=== PATIENT | male | born 1950 | race Caucasian/White ===

== ENCOUNTER 2016-11-10 17:13 | Inpatient (IN) | payer OTHER, MEDICARE ==
[~2016-11-10] VITALS: Ht 167.6 cm; Wt 67.0 kg
[~2016-11-10 17:13] MED LIST: AZAT50 PO; FEXO180 PO; FLUT1SPR9; INFL100P IV; MIRT30 PO; NORC10TA2 PO; OMEP20TA39 PO
[2016-11-10 17:14] VITALS: BP 142/80; PULSE 82; RESP 16; TEMP 98.4; O2SAT 98
[2016-11-10] MEDS ORDERED: FLUT1SPR5 EACH NARE (17:26)
[2016-11-10] MEDS ORDERED: INFL100P (17:26)
[2016-11-10] MEDS ORDERED: AZAT50 PO (17:26)
[2016-11-10] MEDS ORDERED: HYDR-3366 PO (17:26)
[2016-11-10] MEDS ORDERED: FEXO15TA PO (17:26)
[2016-11-10] MEDS ORDERED: LISI-519 PO (17:27)
[2016-11-10] MEDS ORDERED: OMEP10CA PO (17:27)
[2016-11-10] MEDS ORDERED: MIRT30TA PO (17:28)
[2016-11-10] MEDS ORDERED: SODIUM CHLOR 0.9% 1000 ML INJ 1,000 ML IV ONE (17:30)
--- NOTE | 2016-11-10 17:34 | PD ---
HPI Chief Complaint: Abdominal Pain Time Seen by Provider: 17:24 Travel History International Travel<30 days: No Contact w/Intl Traveler<30days: No Traveled to known affect area: No History of Present Illness HPI This is a 66-year-old male who has a history of Crohn's disease status post total colectomy and ileostomy placement with several known strictures who presents to the emergency Department with onset of abdominal discomfort that started 4 days ago, severe at that time associated with absence of ileostomy output. He tried to treat it at home conservatively and put himself on bowel rest. He did vomit that day. The following day he started to have production from his ostomy again however since then he still been unable to eat or drink and he feels weak and has been getting increasingly dehydrated. Right now he has minimal pain on the right side, intermittent, nonradiating. He denies any blood in his output and denies any fevers or chills. PFSH Past Medical History Narrative Medical Crohn's Disease Hx of SBO that resolves spontaneously HTN Hx of hepatic cysts/renal cyst Allergies Anxiety/Depression GERD Hiatal hernia Arthritis: No Asthma: No Autoimmune Disease: No Blood Disorders: No Heart Rhythm Problems: No Cancer: No Cardiovascular Problems: No High Cholesterol: No Chemotherapy: No Chest Pain: No Congestive Heart Failure: No COPD: No Cerebrovascular Accident: No Diabetes: No Diminished Hearing: No Endocrine: No Gastrointestinal Disorders: Yes (HX CROHNS) GERD: Yes Genitourinary: No Headaches: No Hepatitis: No Hiatal Hernia: No Hypertension: No Immune Disorder: No Implanted Vascular Access Dvce: No Kidney Stones: Yes Medical other: No Musculoskeletal: No Neurologic: No Psychiatric: No Reproductive: No Respiratory: No Immunizations Current: Yes Migraines: No Renal Failure: No Seizures: No Sickle Cell Disease: No Sleep Apnea: No Thyroid Disease: No Ulcer: No PNEUMOCCOCAL Vaccine (Year): 2 Past Surgical History Abdominal Surgery: Yes (ILEIOSTOMY, ENTIRE LARGE INTESTINE REMOVED, GALLBLADDER REMOVED) AICD: No Appendectomy: Yes Cardiac Surgery: No Cholecystectomy: Yes Ear Surgery: No Endocrine Surgery: No Eye Surgery: No Genitourinary Surgery: No Gynecologic Surgery: No Joint Replacement: No Neurologic Surgery: No Oral Surgery: No Pacemaker: No Thoracic Surgery: No Other Surgery: Yes (ILEOSTOMY, COLON, APPENDECTOMY, ANAL, GALLBLADDER) Social History Alcohol Use: Yes (OCC) Tobacco Use: No Substance Use: No Allergies-Medications (Allergen,Severity, Reaction): Coded Allergies: No Known Allergies (Verified , 11/10/16) Reported Meds & Prescriptions Reported Meds & Active Scripts Active Reported Mirtazapine 30 Mg Tab 30 Mg PO HS Lisinopril 5 Mg Tab 5 Mg PO DAILY Omeprazole 10 Mg Cap 10 Mg PO DAILY Remicade Inj (Infliximab) 100 Mg Inj [place] (Hydrocodone-Acetaminophen) 10-325 Mg Tab 1 Tab PO Q4H PRN Flonase Nasal [place] (Fluticasone Nasal [place]) 50 Mcg/Act [place] 50 Mcg EACH NARE BID Lucina Allergy (Fexofenadine HCl) 180 Mg Tab 180 Mg PO DAILY Azathioprine 50 Mg Tab 50 Mg PO DAILY Hazardous agent use appropriate precautions for handling and disposal. Review of Systems Except as stated in HPI: all other systems reviewed are Neg Physical Exam Narrative GENERAL:Well appearing, no acute distress SKIN: Dry with skin tenting. HEAD: Atraumatic. Normocephalic. EYES: Pupils equal and round. No injection or drainage. ENT: Dry mucous membranes. NECK: Trachea midline. CARDIOVASCULAR: Regular rate and rhythm. No murmur appreciated. RESPIRATORY: Clear to auscultation. Breath sounds equal bilaterally. GASTROINTESTINAL: Multiple abdominal scars, normal bowel sounds in the upper abdomen. Mildly tender to palpation in the right upper and right lower quadrants with no rebound or guarding. MUSCULOSKELETAL: No obvious deformities. NEUROLOGICAL: Awake and alert. No obvious cranial nerve deficits. Moving all extremities. PSYCHIATRIC: Appropriate mood and affect; insight and judgment normal. Data Data Last Documented VS Vital Signs Date Time Temp Pulse Resp B/P Pulse Ox O2 Delivery O2 Flow Rate FiO2 11/10/16 20:00 90 16 133/65 99 Room Air 11/10/16 17:14 98.4 Orders Complete Blood Count With Diff (11/10/16 17:30) Comprehensive Metabolic Panel (11/10/16 17:30) ^ Insert Iv (11/10/16 17:30) Sodium Chlor 0.9% 1000 Ml Inj (Ns 1000 M (11/10/16 17:30) Ct Abd/Pel W Iv Contrast(Rout) (11/10/16 ) Morphine Inj (Morphine Inj) (11/10/16 17:45) Iohexol 350 Inj (Omnipaque 350 Inj) (11/10/16 19:20) Sodium Chlor 0.9% 1000 Ml Inj (Ns 1000 M (11/10/16 19:30) Admit To Inpatient (11/10/16 ) Code Status (11/10/16 19:56) Vital Signs (Adult) Q4H (11/10/16 19:56) Activity Oob With Assistance (11/10/16 19:56) Sodium Chloride 0.9% Flush (Ns Flush) (11/10/16 20:00) Sodium Chloride 0.9% Flush (Ns Flush) (11/10/16 21:00) Acetaminophen (Tylenol) (11/10/16 20:00) Ondansetron Inj (Zofran Inj) (11/10/16 20:00) Temazepam (Restoril) (11/10/16 20:00) Basic Metabolic Panel (Bmp) (11/11/16 06:00) Complete Blood Count With Diff (11/11/16 06:00) Chest, Single Ap (11/10/16 19:56) Electrocardiogram (11/10/16 19:56) Pt Request For Service (11/10/16 19:56) Scd Bilateral/Knee High ARCHANA.BID (11/10/16 19:56) Naloxone Inj (Narcan Inj) (11/10/16 20:00) Magnesium Hydroxide Liq (Milk Of Magnesi (11/10/16 20:00) Inpatient Certification (11/10/16 ) Ns + Kcl 20 Meq Inj (Ns + Kcl 20 Meq Inj (11/10/16 20:00) Abdomen, Kub Only (11/11/16 08:00) Clonidine (Catapres) (11/10/16 20:15) Enalaprilat Inj (Vasotec Inj) (11/10/16 20:15) Azathioprine (Imuran) (11/11/16 09:00) Lisinopril (Prinivil) (11/11/16 09:00) Mirtazapine (Remeron) (11/10/16 21:00) Acetamin-Hydrocod 325-5 Mg ([place] 5-325 (11/10/16 20:15) Hydromorphone Pf Inj (Dilaudid Pf Inj) (11/10/16 20:15) Admit Order (Ed Use Only) (11/10/16 20:08) Consult Colorectal Surgery (11/10/16 ) Labs Laboratory Tests Test 11/10/16 17:43 White Blood Count 11.9 TH/MM3 Red Blood Count 5.11 MIL/MM3 Hemoglobin 15.9 GM/DL Hematocrit 47.0 % Mean Corpuscular Volume 92.0 FL Mean Corpuscular Hemoglobin 31.1 PG Mean Corpuscular Hemoglobin 33.8 % Concent Red Cell Distribution Width 13.1 % Platelet Count 267 TH/MM3 Mean Platelet Volume 9.1 FL Neutrophils (%) (Auto) 75.0 % Lymphocytes (%) (Auto) 15.5 % Monocytes (%) (Auto) 8.8 % Eosinophils (%) (Auto) 0.3 % Basophils (%) (Auto) 0.4 % Neutrophils # (Auto) 8.9 TH/MM3 Lymphocytes # (Auto) 1.8 TH/MM3 Monocytes # (Auto) 1.0 TH/MM3 Eosinophils # (Auto) 0.0 TH/MM3 Basophils # (Auto) 0.0 TH/MM3 CBC Comment DIFF FINAL Differential Comment Sodium Level 138 MEQ/L Potassium Level 4.1 MEQ/L Chloride Level 105 MEQ/L Carbon Dioxide Level 21.9 MEQ/L Anion Gap 11 MEQ/L Blood Urea Nitrogen 19 MG/DL Creatinine 1.15 MG/DL Estimat Glomerular Filtration 63 ML/MIN Rate Random Glucose 120 MG/DL Calcium Level 9.4 MG/DL Total Bilirubin 0.8 MG/DL Aspartate Amino Transf 44 U/L (AST/SGOT) Alanine Aminotransferase 65 U/L (ALT/SGPT) Alkaline Phosphatase 90 U/L Total Protein 7.5 GM/DL Albumin 3.5 GM/DL MDM Medical Decision Making Medical Screen Exam Complete: Yes Emergency Medical Condition: Yes Interpretation(s) afebrile, no tachycardia, hypertensive mild leukocytosis 75% neutrophils electrolytes within normal limits Last 24 hours Impressions Chest X-Ray 11/10/16 1956 Signed Impressions: Service Date/Time: Thursday, November 10, 2016 20:10 - CONCLUSION: No acute disease. Davian Curtis MD Abdomen/Pelvis CT 11/10/16 0000 Signed Impressions: Service Date/Time: Thursday, November 10, 2016 19:10 - CONCLUSION: 1. Fluid-filled dilated loops of small bowel with particular dilatation of a loop within the left hemipelvis measuring 10 cm in caliber in the region of previous anastomoses indicating recurrent small bowel obstruction. Clinical correlation is recommended. 2. Chronic moderate hydronephrosis on the left. 3. Stable tiny left renal cyst. 4. Enlarged prostate. Davian Curtis MD Differential Diagnosis Bowel obstruction, dehydration, ileus, abscess, stricture Narrative Course This is a 66-year-old male who presents to the emergency department with a history of Crohn's disease, multiple strictures and an ileostomy who reports abdominal discomfort, vomiting and some decreased ostomy output. On exam he appears dehydrated. Labs were obtained which were reassuring. CT abdomen and pelvis demonstrates a bowel obstruction. Given he had some ostomy output on arrival in the emergency department I don't think an NG tube is necessarily warranted. I spoke to Dr. Wilson who was on-call and he agrees that the patient can be closely observed and if he becomes more symptomatic we can place an NG tube at that time. Patient will be admitted for bowel rest, GI and colorectal surgery consultation. Physician Communication Physician Communication Discussed with Dr. Valdez and Dr. Wilson Diagnosis Primary Impression: Small bowel obstruction Admitting Information Admitting Physician Requests: Admit Farida Frye MD Nov 10, 2016 17:34
[2016-11-10 17:35] VITALS: BP 139/64; PULSE 80; RESP 18; O2SAT 100
[2016-11-10] MEDS ORDERED: MORPHINE SULFATE 4 MG/ML INJ IV PUSH ONE (17:45)
[2016-11-10 17:57] LABS: AUTOMATED NEUTROPHIL # 8.9 TH/MM3 (1.8-7.7); BASOPHIL % 0.4 % (0.0-2.0); EOSINOPHIL % 0.3 % (0.0-4.0); HEMO FLAGS DIFF FINAL; LYMPH % 15.5 % (9.0-44.0); LYMPHOCYTE # 1.8 TH/MM3 (1.0-4.8); MEAN CORPUSCULAR HEMOGLOBIN 31.1 PG (27.0-34.0); MEAN CORPUSCULAR HGB CONC 33.8 % (32.0-36.0); MONO % 8.8 % (0.0-8.0); PLATELET COUNT 267 TH/MM3 (150-450); RED BLOOD COUNT 5.11 MIL/MM3 (4.50-5.90); RED CELL DISTRIBUTION WIDTH 13.1 % (11.6-17.2); WHITE BLOOD COUNT 11.9 TH/MM3 (4.0-11.0)
[2016-11-10 18:26] LABS: ALKALINE PHOSPHATASE 90 U/L (45-117); TOTAL BILIRUBIN ADULT 0.8 MG/DL (0.2-1.0)
[2016-11-10 18:44] LABS: ALT (GPT) 65 U/L (12-78); ANION GAP 11 MEQ/L (5-15); AST (GOT) 44 U/L (15-37); BICARBONATE 21.9 MEQ/L (21.0-32.0); BLOOD UREA NITROGEN 19 MG/DL (7-18); CHLORIDE 105 MEQ/L (98-107); GLOMERULAR FILTRATION RATE 63 ML/MIN (>89); SODIUM (NA) 138 MEQ/L (136-145)
[2016-11-10 18:48] LABS: POTASSIUM 4.1 MEQ/L (3.5-5.1)
[2016-11-10] MEDS ORDERED: IOHEXOL 350 MG/ML 10 ML VIAL (for RAD DIAG) IV ONE (19:20)
[2016-11-10] MEDS ORDERED: SODIUM CHLOR 0.9% 1000 ML INJ 1,000 ML IV SCH (19:30)
--- NOTE | 2016-11-10 19:38 | RADRPT ---
EXAM DATE/TIME: 11/10/2016 19:10 [facility] COMPARISON: CT ABDOMEN & PELVIS W CONTRAST, November 03, 2015, 7:12. INDICATIONS : Low medial abdomen pain for 2 days. IV CONTRAST: 90 cc Omnipaque 350 (iohexol) IV ORAL CONTRAST: No oral contrast ingested. RADIATION DOSE: 9.96 CTDIvol (mGy) MEDICAL HISTORY : None SURGICAL HISTORY : Cholecystectomy. Appendectomy. Large intestine removed. ENCOUNTER: Initial ACUITY: 1 day PAIN SCALE: 5/10 LOCATION: Bilateral lower quadrant TECHNIQUE: Volumetric scanning of the abdomen and pelvis was performed. Using automated exposure control and ad justment of the mA and/or kV according to patient size, radiation dose was kept as low as reasonably achievable to obtain optimal diagnostic quality images. DICOM format image data is available electro nically for review and comparison. FINDINGS: Again, there are multiple fluid-filled dilated loops of small bowel. This is worse in appearance com pared to the previous examination in October 2015 and likely represents recurrent small bowel obstructio n. There is a markedly dilated fluid-filled loop of small bowel within the pelvis measuring approxim ately 10 cm in caliber which is in the expected region of previous anastomoses. The patient is statu s post colectomy. The prostate gland is prominent. There is a chronic moderate hydronephrosis on th e left which is stable compared to the previous examination. Small left renal cyst is also stable. The liver, spleen, pancreas, adrenal glands and right kidney are stable. T he abdominal aorta is calc ified but is not aneurysmally dilated. The inferior vena cava is unremarkable. No ascites is noted. The urinary bladder is unremarkable. CONCLUSION: 1. Fluid-filled dilated loops of small bowel with particular dilatation of a loop within the left he mipelvis measuring 10 cm in caliber in the region of previous anastomoses indicating recurrent small bowel obstruction. Clinical correlation is recommended. 2. Chronic moderate hydronephrosis on the left. 3. Stable tiny left renal cyst. 4. Enlarged prostate. Davian Curtis MD on November 10, 2016 at 19:22 Board Certified Radiologist. This report was verified electronically.
[2016-11-10 20:00] VITALS: BP 133/65; PULSE 90; RESP 16; O2SAT 99
[2016-11-10] MEDS ORDERED: ONDANSETRON HCL 4 MG/2 ML VIAL IVP PRN (20:00)
[2016-11-10] MEDS ORDERED: SODIUM CHLORIDE 0.9% FLUSH 10 ML FLUSH IV FLUSH PRN (20:00)
[2016-11-10] MEDS ORDERED: TEMAZEPAM 15 MG CAP PO PRN (20:00)
[2016-11-10] MEDS ORDERED: ACETAMINOPHEN 325 MG TAB PO PRN (20:00)
[2016-11-10] MEDS ORDERED: NALOXONE HCL 0.4 MG/ML AMP IV PRN (20:00)
[2016-11-10] MEDS ORDERED: MAGNESIUM HYDROXIDE SUSP 30 ML CUP PO PRN (20:00)
[2016-11-10] MEDS ORDERED: cloNIDine HCL 0.2 MG TAB PO PRN (20:15)
[2016-11-10] MEDS ORDERED: ACETAMINOPHEN/HYDROcodone 325 MG/5 MG TAB PO PRN (20:15)
[2016-11-10] MEDS ORDERED: ENALAPRILAT 1.25 MG/ML VIAL IV PRN (20:15)
[2016-11-10] MEDS ORDERED: HYDROmorphone HCL PF 1 MG/ML VIAL IV PUSH PRN (20:15)
--- NOTE | 2016-11-10 20:22 | RADRPT ---
EXAM DATE/TIME: 11/10/2016 20:10 [facility] COMPARISON: No previous studies available for comparison. INDICATIONS : Shortness of breath. MEDICAL HISTORY : Crohn's disease. Renal calculi. SURGICAL HISTORY : Cholecystectomy. Ileostomy. ENCOUNTER: Initial ACUITY: 1 day PAIN SCORE: 0/10 LOCATION: Bilateral chest FINDINGS: A single view of the chest demonstrates the lungs to be symmetrically aerated without evidence of mas s, infiltrate or effusion. The cardiomediastinal contours are unremarkable. Osseous structures are intact. CONCLUSION: No acute disease. Davian Curtis MD on November 10, 2016 at 20:19 Board Certified Radiologist. This report was verified electronically.
[2016-11-10] MEDS: MIRTAZAPINE 15 MG TAB PO SCH (21:21)
[2016-11-10] MEDS: SODIUM CHLORIDE 0.9% FLUSH 10 ML FLUSH IV FLUSH SCH (21:21)
[2016-11-10] MEDS: NS + KCL 20 MEQ INJ 1,000 ML IV SCH (21:21)
[2016-11-10 21:32] VITALS: BP 150/69; PULSE 60; RESP 17; TEMP 97.8; O2SAT 98
[2016-11-10 23:58] VITALS: BP 115/57; PULSE 60; RESP 18; TEMP 98.3; O2SAT 95
--- NOTE | 2016-11-11 04:57 | MB ---
cc: JEANA FAIR ANDREW H. M.D. DATE OF CONSULTATION: 11/10/2016 REASON FOR CONSULTATION: History of Crohn disease, possible small bowel obstruction. HISTORY OF PRESENT ILLNESS Mr. Dennis is a 66-year-old male with a long history of Crohn disease dating back to total colectomy, ileostomy, in the . Patient has been treated several times since then for apparent small bowel obstruction which have resolved spontaneously. He has also had some known strictures of the small bowel which have been treated with Remicade and Azathioprine. The patient has been doing fairly well the last couple of days noting increased abdominal discomfort and cramping. He also had decreased ileostomy output. He cut back his diet and despite conservative treatment has not gotten any improvement. He denies fever. He has not had any solid food only minor amounts of liquid for the last several days. He has been feeling a little bit more fatigued and lethargic and presented to the emergency room for additional evaluation. Denies any nausea or vomiting. No other illness at home. No particular food intake. MEDICAL AND SURGICAL HISTORY Well-documented in the admitting history and physical. PERTINENT PHYSICAL A very pleasant well-developed male in no acute distress. HEENT: Remarkable for dry but pink membranes, nonicteric sclera. NECK: Neck was supple without gross adenopathy. CHEST: Relatively clear, symmetrical expanding. HEART: Heart had a regular rhythm. ABDOMEN: Abdomen was full, multiple incisions, all scars appeared to be fairly well-healed. Ileostomy was intact with no stool in the bag, some tympany but no rebound or guarding. Some tenderness in the lower abdomen but no masses. No obvious hernias. EXTREMITIES: No cyanosis or clubbing and no pedal edema. LABORATORY STUDIES: White count was 11.9, hemoglobin 15.9, hematocrit 47.0. Electrolytes remarkable for BUN of 19, creatinine of 1.1, CO2 of 22. IMAGING STUDIES: CT scan reviewed showing a fairly distended loop of bowel in the pelvis which has progressed significantly since scan a year ago, almost 10 cm in diameter. IMPRESSION A 66-year-old male with Crohn disease, multiple surgeries with total colectomy, ileostomy and now apparent progression of either small bowel obstruction from adhesions or maybe stricture from recurrent Crohn disease. He certainly does not appear to be very toxic, however, he has been unable to take any significant amount of nutrition or oral fluid intake. He also had very little stomal output now for several days. Will continue his n.p.o. status except for ice chips and oral medications. Hold off on the nasogastric tube since his stomach and upper intestines do not appear to be very dilated. With progression of his obstructed loop in the pelvis, he may require surgical decompression if it does not resolve over the next 12 to 24 hours. Will repeat his CT scan in the morning with oral contrast to see if it shows signs of any spontaneous improvement. MD ARUN Fuentes/MICHELLE /11:37 PM /4:31 AM
[2016-11-11 08:00] VITALS: BP 123/60; PULSE 55; RESP 16; TEMP 96.7; O2SAT 97
[2016-11-11] MEDS: SODIUM CHLORIDE 0.9% FLUSH 10 ML FLUSH IV FLUSH SCH ×2 (09:00→19:45)
[2016-11-11] MEDS: azaTHIOprine 50 MG TAB PO SCH (09:23)
[2016-11-11] MEDS: LISINOPRIL 5 MG TAB PO SCH (09:24)
[2016-11-11] MEDS: NS + KCL 20 MEQ INJ 1,000 ML IV SCH ×2 (09:24→16:39)
--- NOTE | 2016-11-11 10:23 | HHI.PR ---
Subjective Remarks C/R Surg afebrile, VSS voiding min stool Objective - Vital Signs Date Time Temp Pulse Resp B/P Pulse Ox O2 Delivery O2 Flow Rate FiO2 11/11/16 08:00 96.7 55 16 123/60 97 11/10/16 20:00 Room Air Result Diagram: 11/10/16 1743 11/10/16 174 Objective Remarks PE alert Abd - full, tight, mild tenderness A/P Assessment and Plan Imp: repeat CT this AM with contrast cont IVF Momo Omalley MD Nov 11, 2016 10:23
[2016-11-11 12:00] VITALS: BP 131/61; PULSE 56; RESP 17; TEMP 96.5; O2SAT 97
--- NOTE | 2016-11-11 12:01 | EKG ---
Date Performed: 11/10/2016 Time Performed: 20:11:00 PTAGE: 66 years EKG: Sinus rhythm ST SEGMENT ELEVATION IS NOTED IN THE INFERIOR LEADS WELL IN THE LATERAL PRECORDIAL LEADS, THIS IS CONSISTENT WITH EARLY REPOLARIZATION Since previous tracing, no significant change noted NORMAL E CG PREVIOUS TRACING : 02/11/2013 12.18 DOCTOR: Holland Jimenez Interpretating Date/Time 11/11/2016 11:59:39
[2016-11-11 12:08] LABS: AUTOMATED NEUTROPHIL # 4.9 TH/MM3 (1.8-7.7); BASOPHIL % 0.3 % (0.0-2.0); EOSINOPHIL # 0.1 TH/MM3 (0-0.4); HEMATOCRIT 41.1 % (39.0-51.0); HEMO FLAGS DIFF FINAL; LYMPH % 18.7 % (9.0-44.0); LYMPHOCYTE # 1.3 TH/MM3 (1.0-4.8); MEAN CELL VOLUME 92.1 FL (80.0-100.0); MEAN CORPUSCULAR HEMOGLOBIN 30.9 PG (27.0-34.0); MEAN CORPUSCULAR HGB CONC 33.5 % (32.0-36.0); MONO % 10.1 % (0.0-8.0); NEUT % 69.9 % (16.0-70.0); PLATELET COUNT 204 TH/MM3 (150-450); RED BLOOD COUNT 4.46 MIL/MM3 (4.50-5.90); RED CELL DISTRIBUTION WIDTH 13.2 % (11.6-17.2)
[2016-11-11 12:53] LABS: BICARBONATE 25.7 MEQ/L (21.0-32.0); POTASSIUM 4.4 MEQ/L (3.5-5.1)
[2016-11-11] MEDS ORDERED: DIATRIZOATE MEGLUM/DIATRIZOATE SOD 9 ML CUP PO ONE (14:00)
--- NOTE | 2016-11-11 14:36 | HHI.HP ---
HPI Service [facility] Hospitalists Primary Care Physician Ho Nagy M.D. Admission Diagnosis bowel obstruction Chief Complaint: abdominal pain Travel History International Travel<30 Days: No Contact w/Intl Traveler <30 Da: No Traveled to Known Affected Are: No History of Present Illness Patient is a 66-year-old male with history of Crohn's disease. Patient has previously undergone total colectomy with ileostomy placement, 1997. Patient has had several admissions due to small bowel obstruction which have resolved spontaneously with supportive care. Over the last several days patient has developed increasing abdominal pain and discomfort. Also, decreased output from his ileostomy. Patient tried decreasing his diet without improvement. Decreased by mouth intake for the last several days. Patient denies any nausea or vomiting. Pt is currently being treated with Remicade 100mg IV [id number] and Azathioprine 50mg po daily for his Crohn's. Review of Systems Constitutional: DENIES: Diaphoretic episodes, Fatigue, Fever, Weight gain, Weight loss, Chills, Dizziness, Change in appetite, Night Sweats Endocrine: DENIES: Heat/cold intolerance, Polydipsia, Polyuria, Polyphagia Eyes: DENIES: Blurred vision, Diplopia, Eye inflammation, Eye pain, Vision loss , Photosensitivity, Double Vision Ears, nose, mouth, throat: DENIES: Tinnitus, Hearing loss, Vertigo, Nasal discharge, Oral lesions, Throat pain, Hoarseness, Ear Pain, Running Nose, Epistaxis, Sinus Pain, Toothache, Odynophagia Respiratory: DENIES: Apneas, Cough, Snoring, Wheezing, Hemoptysis, Sputum production, Shortness of breath Cardiovascular: DENIES: Chest pain, Palpitations, Syncope, Dyspnea on Exertion , PND, Lower Extremity Edema, Orthopnea, Claudication Gastrointestinal: COMPLAINS OF: Abdominal pain, See HPI, DENIES: Black stools , Bloody stools, BRB per rectum, Constipation, Diarrhea, GERD, Nausea, Reflux, Vomiting, Difficulty Swallowing, Anorexia Genitourinary: DENIES: Urinary frequency, Urinary incontinence, Urgency, Hematuria, Dysuria, Nocturia Musculoskeletal: DENIES: Joint pain, Muscle aches, Stiffness, Joint Swelling, Back pain, Neck pain Integumentary: DENIES: Abnormal pigmentation, Nail changes, Pruritus, Rash Hematologic/lymphatic: DENIES: Bruising, Lymphadenopathy Immunologic/allergic: DENIES: Eczema, Urticaria Neurologic: DENIES: Abnormal gait, Headache, Localized weakness, Paresthesias, Seizures, Speech Problems, Tremor, Poor Balance Psychiatric: DENIES: Anxiety, Confusion, Mood changes, Depression, Hallucinations, Agitation, Suicidal Ideation, Homicidal Ideation, Delusions, History of Bipolar, History of Schizophrenia Past Family Social History Past Medical History Crohn's Disease Hx of SBO that resolves spontaneously HTN Hx of hepatic cysts/renal cyst Anxiety/Depression GERD Hiatal hernia Past Surgical History Multiple abdominal surgeries, including total colectomy with ileostomy placement (1997) Cholecystectomy EGD/Ileoscopy on 07/04/[address] Renteria --> Gastritis, distal esophagitis, small hiatal hernia, small ulcer in the ileal pouch, no tight stricture seen, no need for dilation at that time. Reported Medications Reported Meds & Active Scripts Active Reported Mirtazapine 30 Mg Tab 30 Mg PO HS Lisinopril 5 Mg Tab 5 Mg PO DAILY Omeprazole 10 Mg Cap 10 Mg PO DAILY Remicade Inj (Infliximab) 100 Mg Inj [place] (Hydrocodone-Acetaminophen) 10-325 Mg Tab 1 Tab PO Q4H PRN Flonase Nasal [place] (Fluticasone Nasal [place]) 50 Mcg/Act [place] 50 Mcg EACH NARE BID Lucina Allergy (Fexofenadine HCl) 180 Mg Tab 180 Mg PO DAILY Azathioprine 50 Mg Tab 50 Mg PO DAILY Hazardous agent use appropriate precautions for handling and disposal. Allergies: Coded Allergies: No Known Allergies (Verified , 11/10/16) Family History Noncontributory Social History - No tobacco use - No alcohol use - No illicit street drugs Physical Exam Vital Signs Vital Signs Date Time Temp Pulse Resp B/P Pulse Ox O2 Delivery O2 Flow Rate FiO2 11/11/16 12:00 96.5 56 17 131/61 97 11/11/16 08:00 96.7 55 16 123/60 97 11/11/16 03:07 18 11/10/16 23:58 98.3 60 18 115/57 95 11/10/16 21:32 97.8 60 17 150/69 98 11/10/16 20:00 90 16 133/65 99 Room Air 11/10/16 17:35 80 18 139/64 100 Room Air 11/10/16 17:29 18 11/10/16 17:14 98.4 82 16 142/80 98 Physical Exam GENERAL: This is a well-nourished, well-developed patient, in no apparent distress. SKIN: No rashes, ecchymoses or lesions. Cool and dry. HEAD: Atraumatic. Normocephalic. No temporal or scalp tenderness. EYES: Pupils equal round and reactive. Extraocular motions intact. No scleral icterus. No injection or drainage. ENT: Nose without bleeding, purulent drainage or septal hematoma. Throat without erythema, tonsillar hypertrophy or exudate. Uvula midline. Airway patent. NECK: Trachea midline. No JVD or lymphadenopathy. Supple, nontender, no meningeal signs. CARDIOVASCULAR: Regular rate and rhythm without murmurs, gallops, or rubs. RESPIRATORY: Clear to auscultation. Breath sounds equal bilaterally. No wheezes , rales, or rhonchi. GASTROINTESTINAL: Abdomen soft, non-tender, nondistended. No hepato-splenomegaly , or palpable masses. No guarding. ostomy in RLQ with some liquid stool in his ostomy bag MUSCULOSKELETAL: Extremities without clubbing, cyanosis, or edema. No joint tenderness, effusion, or edema noted. No calf tenderness. Negative Homans sign bilaterally. NEUROLOGICAL: Awake and alert. Cranial nerves II through XII intact. Motor and sensory grossly within normal limits. Five out of 5 muscle strength in all muscle groups. Normal speech. Laboratory Laboratory Tests Test 11/10/16 11/11/16 17:43 10:55 White Blood Count 11.9 7.0 Red Blood Count 5.11 4.46 Hemoglobin 15.9 13.8 Hematocrit 47.0 41.1 Mean Corpuscular Volume 92.0 92.1 Mean Corpuscular Hemoglobin 31.1 30.9 Mean Corpuscular Hemoglobin 33.8 33.5 Concent Red Cell Distribution Width 13.1 13.2 Platelet Count 267 204 Mean Platelet Volume 9.1 9.3 Neutrophils (%) (Auto) 75.0 69.9 Lymphocytes (%) (Auto) 15.5 18.7 Monocytes (%) (Auto) 8.8 10.1 Eosinophils (%) (Auto) 0.3 1.0 Basophils (%) (Auto) 0.4 0.3 Neutrophils # (Auto) 8.9 4.9 Lymphocytes # (Auto) 1.8 1.3 Monocytes # (Auto) 1.0 0.7 Eosinophils # (Auto) 0.0 0.1 Basophils # (Auto) 0.0 0.0 CBC Comment DIFF FINAL DIFF FINAL Differential Comment Sodium Level 138 141 Potassium Level 4.1 4.4 Chloride Level 105 108 Carbon Dioxide Level 21.9 25.7 Anion Gap 11 7 Blood Urea Nitrogen 19 16 Creatinine 1.15 1.06 Estimat Glomerular Filtration 63 70 Rate Random Glucose 120 75 Calcium Level 9.4 8.5 Total Bilirubin 0.8 Aspartate Amino Transf 44 (AST/SGOT) Alanine Aminotransferase 65 (ALT/SGPT) Alkaline Phosphatase 90 Total Protein 7.5 Albumin 3.5 Result Diagram: 11/11/16 1055 11/11/16 1055 Imaging Last Impressions Chest X-Ray 11/10/16 195 Signed Impressions: Service Date/Time: Thursday, November 10, 2016 20:10 - CONCLUSION: No acute disease. Davian Curtis MD Abdomen/Pelvis CT 11/10/16 0000 Signed Impressions: Service Date/Time: Thursday, November 10, 2016 19:10 - CONCLUSION: 1. Fluid-filled dilated loops of small bowel with particular dilatation of a loop within the left hemipelvis measuring 10 cm in caliber in the region of previous anastomoses indicating recurrent small bowel obstruction. Clinical correlation is recommended. 2. Chronic moderate hydronephrosis on the left. 3. Stable tiny left renal cyst. 4. Enlarged prostate. Davian Curtis MD Septic Shock Reassessment Heart: Regular rate and rhythm Lungs: Clear Skin: Warm Peripheral Pulses: Bounding Right Radial Bounding Left Radial Bounding Right Popliteal Bounding Left Popliteal Bounding Right Dorsalis Pedis Bounding Left Dorsalis Pedis Bounding Right Posterior Tibial Bounding Left Posterior Tibial Capillary Refill: Brisk Assessment and Plan Problem List: (1) Small bowel obstruction Status: Acute Plan: - Comgmt with CRS - appreciate input from Dr. Ku - CT abd/pelvis (11/10/16) 1. Fluid-filled dilated loops of small bowel with particular dilatation of a loop within the left hemipelvis measuring 10 cm in caliber in the region of previous anastomoses indicating recurrent small bowel obstruction - poor oral intake & decreased stomal output over the last several days - IVFs - supportive care - repeat CT abd/pelvis - pt may require surgical intervention (2) Crohn's disease Status: Chronic Plan: - pt takes Remicade and Azathioprine at home (3) HTN (hypertension) Status: Chronic Plan: - lisinopril (4) Depression Status: Chronic Plan: - remeron (5) GERD (gastroesophageal reflux disease) Status: Chronic Plan: - PPI Physician Certification 2 Midnight Certification Type: Admission for Inpatient Services Order for Inpatient Services The services are ordered in accordance with Medicare regulations or non- Medicare payer requirements, as applicable. In the case of services not specified as inpatient-only, they are appropriately provided as inpatient services in accordance with the 2-midnight benchmark. Estimated LOS (days): 3 3 days is the estimated time the patient will need to remain in the hospital, assuming treatment plan goals are met and no additional complications. Post-Hospital Plan: Not yet determined Problem Qualifiers (1) Crohn's disease: Qualified Code: K50.812 - Crohn's disease of both small and large intestine with intestinal obstruction (2) HTN (hypertension): Qualified Code: I10 - Essential hypertension (3) Depression: Qualified Code: F32.9 - Depression, unspecified depression type (4) GERD (gastroesophageal reflux disease): Qualified Code: K21.9 - Gastroesophageal reflux disease, esophagitis presence not specified Ronny Valdez DO Nov 11, 2016 14:36
[2016-11-11 16:00] VITALS: BP 149/77; PULSE 61; RESP 16; TEMP 96.8; O2SAT 98
--- NOTE | 2016-11-11 16:21 | RADRPT ---
EXAM DATE/TIME: 11/11/2016 15:48 [place] COMPARISON: CT ABDOMEN & PELVIS W CONTRAST, November 03, 2015, 7:12. CT ABDOMEN & PELVIS W CONTRAST, November 10, 2016, 19:10. INDICATIONS : Abdomen pain. ORAL CONTRAST: No oral contrast ingested. RADIATION DOSE: 9.84 CTDIvol (mGy) MEDICAL HISTORY : Crohn's disease. SURGICAL HISTORY : Appendectomy. Cholecystectomy. ENCOUNTER: Initial ACUITY: 1 day PAIN SCALE: 5/10 LOCATION: Bilateral abdomen. TECHNIQUE: Volumetric scanning of the abdomen and pelvis was performed. Using automated exposure control and ad justment of the mA and/or kV according to patient size, radiation dose was kept as low as reasonably achievable to obtain optimal diagnostic quality images. DICOM format image data is available electro nically for review and comparison. FINDINGS: The multiple mildly dilated loops of small bowel are filled with contrast decreasing the likelihood o f severe small bowel obstruction. Contrast is identified in the region of the rectum as well as with in the region of the right lower quadrant ostomy site. The findings are more suggestive of probable chronic small bowel dilatation related to partial small bowel obstruction or possible chronic ileus. Clinical correlation is recommended. There is persistent dilated loop of bowel within the left hemip naida which is stable. The previously noted chronic moderate hydronephrosis on the left is stable. T iny left renal cyst is also stable. The prostate remains enlarged. CONCLUSION: 1. Contrast identified throughout the small bowel loops which makes complete small bowel obstruction unlikely. The findings are more suggestive of dilatation related to chronic partial small bowel obs truction or ileus. Clinical correlation is recommended. 2. Stable moderate left-sided hydronephrosis. 3. Stable left renal cyst. 4. Enlarged prostate. Davian Curtis MD on November 11, 2016 at 16:04 Board Certified Radiologist. This report was verified electronically.
[2016-11-11] MEDS: MIRTAZAPINE 15 MG TAB PO SCH (19:46)
[2016-11-11 20:21] VITALS: BP 139/65; PULSE 62; RESP 17; TEMP 98.2; O2SAT 96
[2016-11-12 00:07] VITALS: BP 135/62; PULSE 68; RESP 17; TEMP 96; O2SAT 96
[2016-11-12 08:00] VITALS: BP 149/70; PULSE 57; RESP 18; TEMP 97; O2SAT 98
[2016-11-12] MEDS: SODIUM CHLORIDE 0.9% FLUSH 10 ML FLUSH IV FLUSH SCH ×2 (08:47→21:00)
[2016-11-12] MEDS: NS + KCL 20 MEQ INJ 1,000 ML IV SCH (08:53)
[2016-11-12] MEDS: azaTHIOprine 50 MG TAB PO SCH (08:53)
[2016-11-12] MEDS: LISINOPRIL 5 MG TAB PO SCH (08:53)
--- NOTE | 2016-11-12 09:00 | HHI.PR ---
Subjective Remarks Pt reports that his abdominal pain is greatly improved. He has had fairly normal output into his ileostomy bag over the last 24 hours. Pt would like to try advanced diet. Objective Vitals Vital Signs Date Time Temp Pulse Resp B/P Pulse Ox O2 Delivery O2 Flow Rate FiO2 11/12/16 08:00 97.0 57 18 149/70 98 11/12/16 00:07 96.0 68 17 135/62 96 11/11/16 20:21 98.2 62 17 139/65 96 11/11/16 16:00 96.8 61 16 149/77 98 11/11/16 12:00 96.5 56 17 131/61 97 11/11/16 11/11/16 11/12/16 15:00 23:00 07:00 Intake Total 0 ml 300 ml 712 ml Balance 0 ml 300 ml 712 ml Intake Oral 0 ml IV Total 300 ml 712 ml # Voids 6 2 2 # Bowel Movements 6 Result Diagram: 11/11/16 1055 11/11/16 1055 Other Results Laboratory Tests Test 11/10/16 11/11/16 17:43 10:55 White Blood Count 11.9 TH/MM3 7.0 TH/MM3 Red Blood Count 5.11 MIL/MM3 4.46 MIL/MM3 Hemoglobin 15.9 GM/DL 13.8 GM/DL Hematocrit 47.0 % 41.1 % Mean Corpuscular Volume 92.0 FL 92.1 FL Mean Corpuscular Hemoglobin 31.1 PG 30.9 PG Mean Corpuscular Hemoglobin 33.8 % 33.5 % Concent Red Cell Distribution Width 13.1 % 13.2 % Platelet Count 267 TH/MM3 204 TH/MM3 Mean Platelet Volume 9.1 FL 9.3 FL Neutrophils (%) (Auto) 75.0 % 69.9 % Lymphocytes (%) (Auto) 15.5 % 18.7 % Monocytes (%) (Auto) 8.8 % 10.1 % Eosinophils (%) (Auto) 0.3 % 1.0 % Basophils (%) (Auto) 0.4 % 0.3 % Neutrophils # (Auto) 8.9 TH/MM3 4.9 TH/MM3 Lymphocytes # (Auto) 1.8 TH/MM3 1.3 TH/MM3 Monocytes # (Auto) 1.0 TH/MM3 0.7 TH/MM3 Eosinophils # (Auto) 0.0 TH/MM3 0.1 TH/MM3 Basophils # (Auto) 0.0 TH/MM3 0.0 TH/MM3 CBC Comment DIFF FINAL DIFF FINAL Differential Comment Sodium Level 138 MEQ/L 141 MEQ/L Potassium Level 4.1 MEQ/L 4.4 MEQ/L Chloride Level 105 MEQ/L 108 MEQ/L Carbon Dioxide Level 21.9 MEQ/L 25.7 MEQ/L Anion Gap 11 MEQ/L 7 MEQ/L Blood Urea Nitrogen 19 MG/DL 16 MG/DL Creatinine 1.15 MG/DL 1.06 MG/DL Estimat Glomerular Filtration 63 ML/MIN 70 ML/MIN Rate Random Glucose 120 MG/DL 75 MG/DL Calcium Level 9.4 MG/DL 8.5 MG/DL Total Bilirubin 0.8 MG/DL Aspartate Amino Transf 44 U/L (AST/SGOT) Alanine Aminotransferase 65 U/L (ALT/SGPT) Alkaline Phosphatase 90 U/L Total Protein 7.5 GM/DL Albumin 3.5 GM/DL Imaging Last Impressions Abdomen/Pelvis CT 11/11/16 0000 Signed Impressions: Service Date/Time: Friday, November 11, 2016 15:48 - CONCLUSION: 1. Contrast identified throughout the small bowel loops which makes complete small bowel obstruction unlikely. The findings are more suggestive of dilatation related to chronic partial small bowel obstruction or ileus. Clinical correlation is recommended. 2. Stable moderate left-sided hydronephrosis. 3. Stable left renal cyst. 4. Enlarged prostate. Davian Curtis MD Chest X-Ray 11/10/161955 Signed Impressions: Service Date/Time: Thursday, November 10, 2016 20:10 - CONCLUSION: No acute disease. Davian Curtis MD Last Impressions Chest X-Ray 11/10/161955 Signed Impressions: Service Date/Time: Thursday, November 10, 2016 20:10 - CONCLUSION: No acute disease. Davian Curtis MD Abdomen/Pelvis CT 11/10/16 0000 Signed Impressions: Service Date/Time: Thursday, November 10, 2016 19:10 - CONCLUSION: 1. Fluid-filled dilated loops of small bowel with particular dilatation of a loop within the left hemipelvis measuring 10 cm in caliber in the region of previous anastomoses indicating recurrent small bowel obstruction. Clinical correlation is recommended. 2. Chronic moderate hydronephrosis on the left. 3. Stable tiny left renal cyst. 4. Enlarged prostate. Davian Curtis MD Objective Remarks General: NAD, AAOx3 Chest: CTA Cardiac: Regular Abd: +BS, soft ND/NT, ileostomy in right mid abdomen Ext: No edema A/P Problem List: (1) Small bowel obstruction Status: Acute Plan: - Pt is a 66 y/o with Crohn's disease s/p multiple abdominal surgeries and total colectomy with ileostomy placement in 1997 and has had issues with SBO that resolved spontaneously in the past. - He presented with increased abdominal pain and decreased ileostomy output - CRS was consulted. - appreciate input from Dr. Ku - CT abd/pelvis (11/10/16) --> Fluid-filled dilated loops of small bowel with particular dilatation of a loop within the left hemipelvis measuring 10 cm in caliber in the region of previous anastomoses indicating recurrent small bowel obstruction - Repeat CT Abd/pelvis (11/11/16) --> Contrast identified throughout the small bowel loops which makes complete small bowel obstruction unlikely. The findings are more suggestive of dilatation related to chronic partial small bowel obstruction or ileus. - Pt is currently NPO and on IVFs - He states that his abdominal pain is greatly improved and output from his ileostomy has increased. - Pt would like to try liquids. Will discuss with CRS. - Supportive care - DVT prophylaxis with SCDs (2) Crohn's disease Status: Chronic Plan: - pt takes Remicade and Azathioprine at home (3) HTN (hypertension) Status: Chronic Plan: - lisinopril (4) Depression Status: Chronic Plan: - remeron (5) GERD (gastroesophageal reflux disease) Status: Chronic Plan: - PPI Assessment and Plan Patient examined. Assessment and plan formulated with Racehal Moreno PA-C. I agree with the above. sbo improving. parish full liquids. advance to soft diet in AM and if parish then dc Problem Qualifiers (1) Crohn's disease: Qualified Code: K50.812 - Crohn's disease of both small and large intestine with intestinal obstruction (2) HTN (hypertension): Qualified Code: I10 - Essential hypertension (3) Depression: Qualified Code: F32.9 - Depression, unspecified depression type (4) GERD (gastroesophageal reflux disease): Qualified Code: K21.9 - Gastroesophageal reflux disease, esophagitis presence not specified Racheal Moreno Nov 12, 2016 09:00 Hans Smith MD Nov 12, 2016 15:00
[2016-11-12 12:00] VITALS: BP 139/72; PULSE 73; RESP 18; TEMP 96.5; O2SAT 97
[2016-11-12 16:00] VITALS: BP 155/73; PULSE 58; RESP 18; TEMP 97.1; O2SAT 99
--- NOTE | 2016-11-12 17:09 | HHI.PR ---
Subjective Remarks C/R Surg afebrile, VSS voiding stool increased Objective - Vital Signs Date Time Temp Pulse Resp B/P Pulse Ox O2 Delivery O2 Flow Rate FiO2 11/12/16 16:00 97.1 58 18 155/73 99 11/10/16 20:00 Room Air Result Diagram: 11/11/16 1055 11/11/16 1055 Objective Remarks PE alert Abd - softer, less tympany A/P Assessment and Plan Imp: repeat CT this AM with contrast - shows double loop at anastomosis smaller, contrast distally cont IVF - start PO Momo Omalley MD Nov 12, 2016 17:09
[2016-11-12 19:30] VITALS: BP 153/72; PULSE 66; RESP 18; TEMP 95.7; O2SAT 97
[2016-11-12] MEDS: MIRTAZAPINE 15 MG TAB PO SCH (21:33)
[2016-11-12 23:30] VITALS: BP 180/72; PULSE 59; RESP 20; TEMP 96.5; O2SAT 95
[2016-11-13] MEDS: NS + KCL 20 MEQ INJ 1,000 ML IV SCH ×2 (01:12→06:50)
[2016-11-13 03:30] VITALS: BP 154/70; PULSE 56; RESP 20; TEMP 96.9; O2SAT 97
[2016-11-13] MEDS: LISINOPRIL 5 MG TAB PO SCH (07:48)
[2016-11-13] MEDS: SODIUM CHLORIDE 0.9% FLUSH 10 ML FLUSH IV FLUSH SCH (07:48)
[2016-11-13] MEDS: azaTHIOprine 50 MG TAB PO SCH (07:49)
[2016-11-13 08:00] VITALS: BP 159/68; PULSE 55; RESP 18; TEMP 97; O2SAT 97
--- NOTE | 2016-11-13 09:46 | HHI.DCPOC ---
Discharge Care Plan Diagnosis: (1) Crohn's disease (2) Small bowel obstruction (3) HTN (hypertension) (4) GERD (gastroesophageal reflux disease) (5) Depression Goals to Promote Your Health * To prevent worsening of your condition and complications * To maintain your health at the optimal level Directions to Meet Your Goals Take your medications as prescribed Follow your dietary instruction Follow activity as directed Keep your appointments as scheduled Take your immunizations and boosters as scheduled If your symptoms worsen call your PCP, if no PCP go to Urgent Care Center or Emergency Room Smoking is Dangerous to Your Health. Avoid second hand smoke Call the 24-hour hour crisis hotline for domestic abuse at Racheal Moreno Nov 13, 2016 09:46
[2016-11-13 12:00] VITALS: BP 155/72; PULSE 61; RESP 18; TEMP 97.2; O2SAT 99
--- NOTE | 2016-11-13 13:05 | HHI.DS ---
Discharge Summary Admission Date Nov 10, 2016 at 20:09 Discharge Date: Nov 13, 2016 Admitting Diagnosis bowel obstruction (1) Small bowel obstruction Diagnosis: Principal (2) Crohn's disease Diagnosis: Secondary (3) HTN (hypertension) Diagnosis: Secondary (4) Depression Diagnosis: Secondary (5) GERD (gastroesophageal reflux disease) Diagnosis: Secondary Consultants Dr. Momo Ku - [facility] Brief History Patient is a 66-year-old male with history of Crohn's disease. Patient has previously undergone total colectomy with ileostomy placement, 1997. Patient has had several admissions due to small bowel obstruction which have resolved spontaneously with supportive care. Over the last several days patient has developed increasing abdominal pain and discomfort. Also, decreased output from his ileostomy. Patient tried decreasing his diet without improvement. Decreased by mouth intake for the last several days. Patient denies any nausea or vomiting. Pt is currently being treated with Remicade 100mg IV [id number] and Azathioprine 50mg po daily for his Crohn's. CBC/BMP: 11/11/16 1055 11/11/16 1055 Significant Findings Laboratory Tests Test 11/10/16 11/11/16 17:43 10:55 White Blood Count 11.9 TH/MM3 (4.0-11.0) Neutrophils (%) (Auto) 75.0 % (16.0-70.0) Monocytes (%) (Auto) 8.8 % (0.0-8.0) 10.1 % (0.0-8.0) Neutrophils # (Auto) 8.9 TH/MM3 (1.8-7.7) Monocytes # (Auto) 1.0 TH/MM3 (0-0.9) Blood Urea Nitrogen 19 MG/DL (7-18) Estimat Glomerular Filtration 63 ML/MIN (>89) 70 ML/MIN (>89) Rate Random Glucose 120 MG/DL (74-106) Aspartate Amino Transf 44 U/L (15-37) (AST/SGOT) Red Blood Count 4.46 MIL/MM3 (4.50-5.90) Chloride Level 108 MEQ/L (98-107) Imaging Last Impressions Abdomen/Pelvis CT 11/11/16 0000 Signed Impressions: Service Date/Time: Friday, November 11, 2016 15:48 - CONCLUSION: 1. Contrast identified throughout the small bowel loops which makes complete small bowel obstruction unlikely. The findings are more suggestive of dilatation related to chronic partial small bowel obstruction or ileus. Clinical correlation is recommended. 2. Stable moderate left-sided hydronephrosis. 3. Stable left renal cyst. 4. Enlarged prostate. Davian Curtis MD Chest X-Ray 11/10/161955 Signed Impressions: Service Date/Time: Saturday, November 10, 2016 20:10 - CONCLUSION: No acute disease. Davian Curtis MD PE at Discharge General: NAD, AAOx3 Chest: CTA Cardiac: Regular Abd: +BS, soft ND/NT, ileostomy in right mid abdomen Ext: No edema Hospital Course Pt is a 66 y/o with Crohn's disease s/p multiple abdominal surgeries and total colectomy with ileostomy placement in 1997 and has had issues with SBO that resolved spontaneously in the past. He presented with increased abdominal pain and decreased ileostomy output. CRS was consulted. CT abd/pelvis (11/10/16) --> Fluid-filled dilated loops of small bowel with particular dilatation of a loop within the left hemipelvis measuring 10 cm in caliber in the region of previous anastomoses indicating recurrent small bowel obstruction. Pt was treated with conservative management and kept NPO and placed on IVF. Repeat CT Abd/pelvis () --> Contrast identified throughout the small bowel loops which makes complete small bowel obstruction unlikely. The findings are more suggestive of dilatation related to chronic partial small bowel obstruction or ileus. On his abdominal pain is greatly improved and output from his ileostomy increased. Pts diet was advanced to full liquids and then to soft foods and he tolerated this well. Pt was cleared for discharge by CRS on 11/13. He will need to followup with Dr. Ku in the next 1-2 weeks. Pt will likely need to followup with GI, Dr. Hudson, regarding his Crohn's disease. Pt has an appt to followup with Dr. Nagy on , 11/15/16. Pt Condition on Discharge: Stable Discharge Disposition: Discharge Home Discharge Instructions DIET: Follow Instructions for: Soft Diet Activities you can perform: Regular-No Restrictions Follow up Referrals: Colorectal Surgery - 1 Week with Momo Ku MD Gastroenterology - 2 Weeks with Rupal Hudson MD PCP Follow-up - 11/15/[address] Nagy Continued Medications: Azathioprine (Azathioprine) 50 Mg Tab 50 MG PO DAILY Hazardous agent use appropriate precautions for handling and disposal. Immunosuppression #30 Ref 0 TAB Fexofenadine (Lucina Allergy) 180 Mg Tab 180 MG PO DAILY Allergy Management #30 Ref 0 TAB Fluticasone Nasal [place] (Flonase Nasal [place]) 50 Mcg/Act [place] 50 MCG EACH NARE BID Allergies #1 Ref 0 BOTTLE Hydrocodone-Acetaminophen ([place]) 10-325 Mg Tab 1 TAB PO Q4H PRN PAIN Ref 0 TAB Infliximab Inj (Remicade Inj) 100 Mg Inj Lisinopril (Lisinopril) 5 Mg Tab 5 MG PO DAILY Blood Pressure Management #30 Ref 0 TAB Mirtazapine (Mirtazapine) 30 Mg Tab 30 MG PO HS Depression Control #30 Ref 0 TAB Omeprazole (Omeprazole) 10 Mg Cap 10 MG PO DAILY #30 Ref 0 CAP Racheal Moreno Nov 13, 2016 13:05 Hans Smith MD Nov 13, 2016 13:13
== END 2016-11-13 12:57 | disposition home or self-care (01) | DRG 389 ==
LOC: NEPD 17:13 → NEDA 20:09 → N07B 21:06
PROVIDERS: ADMIT Hospitalist; ATTEND Hospitalist
DX: K56.5 Intestinal adhesions [bands] with obstruction (postinfection) (principal); N13.30 Unspecified hydronephrosis; K50.812 Crohn's disease of both small and large intestine with intestinal obstruction; I10 Essential (primary) hypertension; E86.0 Dehydration; F41.9 Anxiety disorder, unspecified; N40.0 Benign prostatic hyperplasia without lower urinary tract symptoms; F32.9 Major depressive disorder, single episode, unspecified; K21.9 Gastro-esophageal reflux disease without esophagitis; Z90.49 Acquired absence of other specified parts of digestive tract; Z93.2 Ileostomy status
CPT/HCPCS: 71010; 74176; 74177; 80048; 80053; 85025; 93005; 96361; 96374; J1170; J2270; J3480; J7030; J7500; Q9963; Q9967

== ENCOUNTER 2017-03-13 05:56 | Inpatient (IN) | payer MEDICARE ==
[~2017-03-13] VITALS: Ht 167.6 cm; Wt 67.5 kg
[~2017-03-13 05:56] MED LIST changes: +FEXO15TA PO; -FEXO180 PO; +FLUT1SPR5 EACH NARE; -FLUT1SPR9; +HYDR-3366 PO; +INFL100P; -INFL100P IV; +LISI-519 PO; -MIRT30 PO; +MIRT30TA PO; -NORC10TA2 PO; +OMEP10CA PO; -OMEP20TA39 PO
[2017-03-13 05:57] VITALS: BP 144/87; PULSE 84; RESP 20; TEMP 97.9; O2SAT 100
--- NOTE | 2017-03-13 06:22 | PD ---
HPI Chief Complaint: Abdominal Pain Time Seen by Provider: 06:13 Travel History International Travel<30 days: No Contact w/Intl Traveler<30days: No Traveled to known affect area: No History of Present Illness HPI The patient is a 66 year old male who presents to the [facility] emergency department with a history of abdominal pain that began on Saturday, yesterday but became worse at 10 PM. He reports having generalized abdominal discomfort. He reports an aching sensation. He reports a diminished appetite yesterday. After the pain became worse at 10 PM he began to have nausea and vomiting 6. He has not had any stool output from his ileostomy since 10 PM. The patient reports that his symptoms are similar to when he has had small bowel obstructions in the past. The patient has a history of Crohn's disease since 20 years of age status post total colectomy and ileostomy placement. Prior to this, he denies noticing any blood in his stool. On review of systems, he denies having any fevers but does report having some chills. He denies having any recent cough, neck pain, chest pain, shortness of breath, urinary symptoms, or neurologic symptoms. He does report having some recent clear rhinorrhea and congestion related to an allergy exacerbation. [facility] Past Medical History Narrative Medical The patient's past medical history is significant for Crohn's disease, recurrent bowel obstructions, hypertension, history of hepatic cysts, renal cysts, history of anxiety and depression, acid reflux, history of hiatal hernia. Arthritis: No Asthma: No Autoimmune Disease: Yes (CROHNS) Blood Disorders: No Heart Rhythm Problems: No Cancer: No Cardiovascular Problems: No High Cholesterol: No Chemotherapy: No Chest Pain: No Congestive Heart Failure: No COPD: No Cerebrovascular Accident: No Diabetes: No Diminished Hearing: No Endocrine: No Gastrointestinal Disorders: Yes (CROHNS) GERD: Yes Genitourinary: Yes Headaches: No Hepatitis: No Hiatal Hernia: No Hypertension: No Immune Disorder: No Implanted Vascular Access Dvce: No Kidney Stones: Yes Musculoskeletal: No Neurologic: No Psychiatric: No Reproductive: No Respiratory: No Immunizations Current: Yes Migraines: No Renal Failure: No Seizures: No Sickle Cell Disease: No Sleep Apnea: No Thyroid Disease: No Ulcer: No PNEUMOCCOCAL Vaccine (Year): 2 Past Surgical History Narrative Surgical The patient's past surgical history is significant for multiple abdominal surgeries including a total colectomy with ileostomy placement, cholecystectomy , endoscopy and ileoscopy. Abdominal Surgery: Yes (TOTAL COLECTOMY/ILEOSTOMY) AICD: No Appendectomy: Yes Cardiac Surgery: No Cholecystectomy: Yes Ear Surgery: No Endocrine Surgery: No Eye Surgery: No Genitourinary Surgery: No Gynecologic Surgery: No Joint Replacement: No Neurologic Surgery: No Oral Surgery: No Pacemaker: No Thoracic Surgery: No Other Surgery: Yes (ILEOSTOMY, COLON, APPENDECTOMY, ANAL, GALLBLADDER) Social History Alcohol Use: Yes (OCC) Tobacco Use: No Substance Use: No Allergies-Medications (Allergen,Severity, Reaction): Coded Allergies: No Known Allergies (Verified , 03/13/17) Reported Meds & Prescriptions Reported Meds & Active Scripts Active Reported Amlodipine (Amlodipine Besylate) 2.5 Mg Tab 2.5 Mg PO DAILY Mirtazapine 30 Mg Tab 30 Mg PO HS Lisinopril 5 Mg Tab 5 Mg PO DAILY Omeprazole 10 Mg Cap 10 Mg PO DAILY Remicade Inj (Infliximab) 100 Mg Inj [place] (Hydrocodone-Acetaminophen) 10-325 Mg Tab 1 Tab PO Q4H PRN Azathioprine 50 Mg Tab 50 Mg PO DAILY Hazardous agent use appropriate precautions for handling and disposal. Review of Systems Except as stated in HPI: all other systems reviewed are Neg General / Constitutional: Positive: Chills, No: Fever Eyes: No: Visual changes HENT: Positive: Rhinitis, No: Headaches Cardiovascular: No: Chest Pain or Discomfort Respiratory: No: Shortness of Breath Gastrointestinal: Positive: Nausea, Vomiting, Abdominal Pain, Changes in Bowel Habits, Loss of Appetite, No: Diarrhea, Hematemesis, Hematochezia, Indigestion Genitourinary: No: Dysuria Musculoskeletal: No: Pain Skin: No Rash Neurologic: No: Weakness, Focal Abnormalities, Change in Mentation, Slurred Speech, Sensory Disturbance Psychiatric: No: Depression Endocrine: No: Polydipsia Hematologic/Lymphatic: No: Easy Bruising Physical Exam Narrative General: The patient is a well-developed well-nourished male, uncomfortable appearing on examination reporting nausea. Head and Neck exam: Head is normocephalic atraumatic. Eyes: EOMI, pupils are equal round and reactive to light. Nose: Midline septum with pink mucous membranes Mouth: Dentition unremarkable. Moist mucus membranes. Posterior oropharynx is not erythematous. No tonsillar hypertrophy. Uvula midline. Airway patent. Neck: No palpable lymphadenopathy. No nuchal rigidity. No thyromegaly. Cardiovascular: Regular rate and rhythm without murmurs, gallops, or rubs. Lungs: Clear to auscultation bilaterally. No wheezes, rhonchi, or rales. Abdomen: Soft, with tenderness on palpation in the left lower quadrant of the abdomen, no other tenderness on palpation of the other quadrants. The patient has decreased bowel sounds are audible. The patient has an ileostomy bag in place in the right side of the lower quadrant of the abdomen has no stool output noted. No guarding, rebound, or rigidity. Extremities: No clubbing, cyanosis, or edema. 2+ pulses in all 4 extremities. No calf tenderness on palpation. Back: No costovertebral angle tenderness to palpation. Neurologic Exam: Grossly nonfocal. Skin Exam: No rash noted. Intact skin that is warm and dry. Data Data Last Documented VS Vital Signs Date Time Temp Pulse Resp B/P (MAP) Pulse Ox O2 Delivery O2 Flow Rate FiO2 03/13/17 06:51 18 Room Air 03/13/17 05:57 97.9 84 100 Orders Orders Electrocardiogram (03/13/17 06:22) Complete Blood Count With Diff (03/13/17 06:22) Comprehensive Metabolic Panel (03/13/17 06:22) Lipase (03/13/17 06:22) Urinalysis - C+S If Indicated (03/13/17 06:22) Westergren Sedimentation Rate (03/13/17 06:22) Magnesium (Mg) (03/13/17 06:22) Iv Access Insert/Monitor (03/13/17 06:22) Ecg Monitoring (03/13/17 06:22) Oximetry (03/13/17 06:22) Sodium Chlor 0.9% 1000 Ml Inj (Ns 1000 M (03/13/17 06:30) Morphine Inj (Morphine Inj) (03/13/17 06:30) Ondansetron Inj (Zofran Inj) (03/13/17 06:30) MDM Medical Decision Making Medical Screen Exam Complete: Yes Emergency Medical Condition: Yes Medical Record Reviewed: Yes Differential Diagnosis Partial small bowel obstruction, versus Crohn's exacerbation, versus constipation Narrative Course During the course of the patients emergency department visit, the patients history, examination, and differential diagnosis were reviewed with the patient. The patient was placed on a manager monitoring with oximetry and frequent blood pressure monitoring. The patient had IV access obtained and blood work sent for analysis. The patient had an ECG done on arrival. The patient's ECG reveals a sinus rhythm with a heart rate of 68, no acute ST segment elevation or depression, T waves are inverted in V1, flat T waves in aVL. Given the fact that the patient reports that he has had multiple CT scans done in the past related to his Crohn's, he was agreeable with the plan to proceed with an abdominal flat and upright unless his laboratory studies are grossly abnormal, then CT scan of the abdomen and pelvis will instead be ordered to further evaluate. The patient was initially provided normal saline 1 L IV fluid bolus, morphine 4 mg IV, Zofran 4 mg IV. The patients laboratory studies and radiologic studies are pending at the conclusion of my shift. The patient's case will be checked out to the oncoming emergency physician to disposition the patient based on the conclusion of the patient's workup. Diagnosis Primary Impression: Abdominal pain Qualified Codes: R10.32 - Left lower quadrant pain Nancy Daniels MD Mar 13, 2017 06:22
[2017-03-13] MEDS ORDERED: ONDANSETRON HCL 4 MG/2 ML VIAL IV ONE (06:30)
[2017-03-13] MEDS ORDERED: MORPHINE SULFATE 4 MG/ML INJ IV PUSH ONE (06:30)
[2017-03-13] MEDS ORDERED: SODIUM CHLOR 0.9% 1000 ML INJ 1,000 ML IV ONE (06:30)
[2017-03-13] MEDS ORDERED: AMLO2.5T PO (06:47)
[2017-03-13 06:51] VITALS: RESP 18
[2017-03-13 07:13] LABS: AUTOMATED NEUTROPHIL # 10.7 TH/MM3 (1.8-7.7); BASOPHIL % 0.3 % (0.0-2.0); EOSINOPHIL % 0.1 % (0.0-4.0); HEMATOCRIT 45.1 % (39.0-51.0); HEMO FLAGS DIFF FINAL; LYMPH % 8.5 % (9.0-44.0); LYMPHOCYTE # 1.1 TH/MM3 (1.0-4.8); MEAN CELL VOLUME 89.7 FL (80.0-100.0); MEAN CORPUSCULAR HEMOGLOBIN 31.5 PG (27.0-34.0); MEAN CORPUSCULAR HGB CONC 35.1 % (32.0-36.0); NEUT % 85.1 % (16.0-70.0); PLATELET COUNT 261 TH/MM3 (150-450); RED BLOOD COUNT 5.03 MIL/MM3 (4.50-5.90); WHITE BLOOD COUNT 12.5 TH/MM3 (4.0-11.0)
[2017-03-13 07:39] LABS: ALKALINE PHOSPHATASE 86 U/L (45-117); TOTAL BILIRUBIN ADULT 0.6 MG/DL (0.2-1.0)
[2017-03-13 07:43] LABS: ALT (GPT) 20 U/L (12-78); ANION GAP 9 MEQ/L (5-15); AST (GOT) 22 U/L (15-37); BLOOD UREA NITROGEN 15 MG/DL (7-18); CHLORIDE 105 MEQ/L (98-107); GLOMERULAR FILTRATION RATE 60 ML/MIN (>89); MAGNESIUM 1.9 MG/DL (1.5-2.5); SODIUM (NA) 140 MEQ/L (136-145)
[2017-03-13 08:00] VITALS: BP 164/79; PULSE 70; RESP 16; O2SAT 98
--- NOTE | 2017-03-13 09:14 | RADRPT ---
EXAM DATE/TIME: 03/13/2017 08:52 [facility] COMPARISON: ABDOMEN FLAT & UPRIGHT, November 03, 2015, 5:30. INDICATIONS : Abdominal pain and has not had a bowel movement. MEDICAL HISTORY : Crohn's disease. SURGICAL HISTORY : Colostomy. Appendectomy. Colon resection. Cholecystectomy. ENCOUNTER: Initial ACUITY: 1 day PAIN SCORE: 5/10 LOCATION: abdomen FINDINGS: Multiple loops of distended small bowel measuring up to 5 cm with multiple air fluid levels in the mi d to lower abdomen. General paucity of colonic air although a subtle air is noted in the transverse c olon. No significant pneumatosis or free air. Multiple calcifications in the pelvis likely reflect ph leboliths. Remainder of exam is unchanged. CONCLUSION: 1. Findings consistent with partial small bowel obstruction or adynamic ileus. No radiographic eviden ce for bowel infarction or perforation. Ramiro Hooper MD on March 13, 2017 at 9:09 Board Certified Radiologist. This report was verified electronically.
[2017-03-13] MEDS ORDERED: NALOXONE HCL 0.4 MG/ML AMP IV PUSH PRN (10:00)
[2017-03-13] MEDS ORDERED: ONDANSETRON HCL 4 MG/2 ML VIAL IVP PRN (10:00)
[2017-03-13] MEDS ORDERED: SODIUM CHLORIDE 0.9% FLUSH 10 ML FLUSH IV FLUSH PRN (10:00)
[2017-03-13] MEDS ORDERED: ACETAMINOPHEN 325 MG TAB PO PRN (10:00)
[2017-03-13] MEDS ORDERED: BISACODYL 10 MG SUPP RECTAL PRN (10:00)
--- NOTE | 2017-03-13 10:12 | PD ---
Physical Exam Date Seen by Provider: Mar 13, 2017 Time Seen by Provider: 07:00 Narrative Patient signed out to me at 7 AM, please see Dr. Daniels's note for further details. Patient awaiting lab work for further treatment. Laboratory Tests Test 03/13/17 06:50 White Blood Count 12.5 TH/MM3 (4.0-11.0) Neutrophils (%) (Auto) 85.1 % (16.0-70.0) Lymphocytes (%) (Auto) 8.5 % (9.0-44.0) Neutrophils # (Auto) 10.7 TH/MM3 (1.8-7.7) Random Glucose 109 MG/DL (74-106) Estimat Glomerular Filtration Rate 60 ML/MIN (>89) Last 24 hours Impressions Abdomen X-Ray 03/13/17 0704 Signed Impressions: Service Date/Time: Saturday, March 13, 2017 08:52 - CONCLUSION: 1. Findings consistent with partial small bowel obstruction or adynamic ileus. No radiographic evidence for bowel infarction or perforation. Ramiro Hooper MD Patient with long history of GI issues and bowel obstruction past, Crohn's disease. He has been having abdominal pains and vomiting, lab work shows leukocytosis and x-ray was done for further evaluation. It is showing small bowel obstruction. At this point, my plan would be to admit the patient for further observation of bowel obstruction. He is feeling improved after given an initial medications. Case was discussed with Dr. Valdez for admission. Data Data Last Documented VS Vital Signs Date Time Temp Pulse Resp B/P (MAP) Pulse Ox O2 Delivery O2 Flow Rate FiO2 03/13/17 08:00 70 16 164/79 (107) 98 Room Air 03/13/17 05:57 97.9 Orders Orders Electrocardiogram (03/13/17 06:22) Complete Blood Count With Diff (03/13/17 06:22) Comprehensive Metabolic Panel (03/13/17 06:22) Lipase (03/13/17 06:22) Urinalysis - C+S If Indicated (03/13/17 06:22) [place] Sedimentation Rate (03/13/17 06:22) Magnesium (Mg) (03/13/17 06:22) Iv Access Insert/Monitor (03/13/17 06:22) Ecg Monitoring (03/13/17 06:22) Oximetry (03/13/17 06:22) Sodium Chlor 0.9% 1000 Ml Inj (Ns 1000 M (03/13/17 06:30) Morphine Inj (Morphine Inj) (03/13/17 06:30) Ondansetron Inj (Zofran Inj) (03/13/17 06:30) Abdomen, Flat & Upright (03/13/17 07:35) Admit To Inpatient (03/13/17 ) Code Status (03/13/17 09:58) Vital Signs (Adult) Q4H (03/13/17 09:58) Activity Oob With Assistance (03/13/17 09:58) Sodium Chloride 0.9% Flush (Ns Flush) (03/13/17 10:00) Sodium Chloride 0.9% Flush (Ns Flush) (03/13/17 21:00) Acetaminophen (Tylenol) (03/13/17 10:00) Ondansetron Inj (Zofran Inj) (03/13/17 10:00) Basic Metabolic Panel (Bmp) (03/14/17 06:00) Complete Blood Count With Diff (03/14/17 06:00) Chest, Single Ap (03/13/17 09:58) Electrocardiogram (03/13/17 09:58) Pt Request For Service (03/13/17 09:58) Scd Bilateral/Knee High ARCHANA.BID (03/13/17 09:58) Naloxone Inj (Narcan Inj) (03/13/17 10:00) Bisacodyl Supp (Dulcolax Supp) (03/13/17 10:00) Inpatient Certification (03/13/17 ) Azathioprine (Imuran) (03/13/17 10:15) Diet Npo Except Meds (03/13/17 Lunch) Enalaprilat Inj (Vasotec Inj) (03/13/17 10:15) 1/2 Ns + Kcl 20 Meq Inj (1/2 Ns + Kcl 20 (03/13/17 10:15) Abdomen, Kub Only (03/14/17 08:00) Admit Order (Ed Use Only) (03/13/17 10:09) Labs Laboratory Tests Test 03/13/17 06:50 White Blood Count 12.5 TH/MM3 Red Blood Count 5.03 MIL/MM3 Hemoglobin 15.9 GM/DL Hematocrit 45.1 % Mean Corpuscular Volume 89.7 FL Mean Corpuscular Hemoglobin 31.5 PG Mean Corpuscular Hemoglobin Concent 35.1 % Red Cell Distribution Width 13.0 % Platelet Count 261 TH/MM3 Mean Platelet Volume 8.9 FL Neutrophils (%) (Auto) 85.1 % Lymphocytes (%) (Auto) 8.5 % Monocytes (%) (Auto) 6.0 % Eosinophils (%) (Auto) 0.1 % Basophils (%) (Auto) 0.3 % Neutrophils # (Auto) 10.7 TH/MM3 Lymphocytes # (Auto) 1.1 TH/MM3 Monocytes # (Auto) 0.7 TH/MM3 Eosinophils # (Auto) 0.0 TH/MM3 Basophils # (Auto) 0.0 TH/MM3 CBC Comment DIFF FINAL Differential Comment Erythrocyte Sedimentation Rate 5 mm/hr Blood Urea Nitrogen 15 MG/DL Creatinine 1.20 MG/DL Random Glucose 109 MG/DL Total Protein 7.7 GM/DL Albumin 3.8 GM/DL Calcium Level 9.3 MG/DL Magnesium Level 1.9 MG/DL Alkaline Phosphatase 86 U/L Aspartate Amino Transf (AST/SGOT) 22 U/L Alanine Aminotransferase (ALT/SGPT) 20 U/L Total Bilirubin 0.6 MG/DL Sodium Level 140 MEQ/L Potassium Level 4.0 MEQ/L Chloride Level 105 MEQ/L Carbon Dioxide Level 26.0 MEQ/L Anion Gap 9 MEQ/L Estimat Glomerular Filtration Rate 60 ML/MIN Lipase 130 U/L [facility] Medical Record Reviewed: Yes Supervised Visit with DELIO: No Diagnosis Primary Impression: Abdominal pain Qualified Codes: R10.32 - Left lower quadrant pain Additional Impression: Small bowel obstruction Admitting Information Admitting Physician Requests: Admit Srikanth Cummins MD Mar 13, 2017 10:12
[2017-03-13] MEDS ORDERED: ENALAPRILAT 1.25 MG/ML VIAL IV PRN (10:15)
--- NOTE | 2017-03-13 10:40 | RADRPT ---
EXAM DATE/TIME: 03/13/2017 10:24 [facility] COMPARISON: CHEST SINGLE AP, November 10, 2016, 20:10. INDICATIONS : Lower chest pain. MEDICAL HISTORY : small bowel obstruction SURGICAL HISTORY : None. ENCOUNTER: Initial ACUITY: 1 day PAIN SCORE: 2/10 LOCATION: Bilateral chest FINDINGS: A single view of the chest demonstrates the lungs to be symmetrically aerated without evidence of mas s, infiltrate or effusion. The cardiomediastinal contours are unremarkable. Osseous structures are intact. CONCLUSION: No evidence of acute cardiopulmonary disease. Curtis Mcclendon MD on March 13, 2017 at 10:39 Board Certified Radiologist. This report was verified electronically.
--- NOTE | 2017-03-13 11:03 | HHI.HP ---
HPI Service [facility] Hospitalists Primary Care Physician Ho Nagy M.D. Admission Diagnosis small bowel obstruction Chief Complaint: abdominal pain Travel History International Travel<30 Days: No Contact w/Intl Traveler <30 Da: No Traveled to Known Affected Are: No History of Present Illness The patient is a 66 year old male patient with a past medication history which includes: Crohn's disease s/p total colectomy with ileostomy, recurrent bowel obstructions, hypertension, history of hepatic cysts, renal cysts, history of anxiety and depression, acid reflux, history of hiatal hernia. Patient presents to the [facility] emergency department with abdominal pain that began on Saturday, yesterday. The pain became worse at 10 PM on Saturday. He reports having generalized abdominal discomfort described as an aching sensation. Patient also has associated nausea and vomiting 6 and decreased appetite. In the ER patient had reported that he has not had any stool output from his ileostomy since 10 PM yesterday. While being in the hospital today patient reports that he has passed a small amount of stool and abdominal pain is slightly better. The patient reports that his symptoms are similar to when he has had small bowel obstructions in the past. The patient has a history of Crohn's disease since 20 years of age status post total colectomy and ileostomy placement. Prior to this, he denies noticing any blood in his stool. On review of systems, he denies having any fevers but does report having some chills. He denies having any recent cough, chest pain, shortness of breath or dysuria. He does report having some recent clear rhinorrhea and congestion related to an allergy exacerbation. Review of Systems Constitutional: DENIES: Fatigue, Fever, Chills Eyes: DENIES: Blurred vision, Diplopia, Vision loss Ears, nose, mouth, throat: COMPLAINS OF: Running Nose Respiratory: DENIES: Cough, Sputum production, Shortness of breath Cardiovascular: DENIES: Chest pain, Palpitations, Lower Extremity Edema Gastrointestinal: COMPLAINS OF: Abdominal pain, Constipation, Nausea, Vomiting , DENIES: Diarrhea Neurologic: DENIES: Abnormal gait, Headache, Localized weakness, Speech Problems Psychiatric: DENIES: Anxiety, Confusion, Depression Past Family Social History Past Medical History Crohn's disease diagnosed in patient's 20s, recurrent bowel obstructions, hypertension, history of hepatic cysts, renal cysts, history of anxiety and depression, acid reflux, history of hiatal hernia. Past Surgical History multiple bowel surgeries total colectomy with ileostomy placement last bowel surgery 1997, cholecystectomy, endoscopy and ileoscopy. Reported Medications Amlodipine (Amlodipine Besylate) 2.5 Mg Tab 2.5 Mg PO DAILY Mirtazapine 30 Mg Tab 30 Mg PO HS Omeprazole 10 Mg Cap 10 Mg PO DAILY Remicade Inj (Infliximab) 100 Mg Inj [place] (Hydrocodone-Acetaminophen) 10-325 Mg Tab 1 Tab PO Q4H PRN Azathioprine 50 Mg Tab 50 Mg PO DAILY Hazardous agent use appropriate precautions for handling and disposal. Allergies: Coded Allergies: No Known Allergies (Verified , 03/13/17) Active Ordered Medications Current Medications Medications (Trade) Dose Ordered Sig/Bacilio Route Start Time Stop Time Status Last Admin (NS Flush) 2 ml UNSCH PRN IV FLUSH 03/13/17 10:00 UNV (NS Flush) 2 ml BID IV FLUSH 03/13/17 21:00 UNV (Tylenol) 650 mg Q4H PRN PO 03/13/17 10:00 UNV (Zofran Inj) 4 mg Q6H PRN IVP 03/13/17 10:00 UNV (Narcan Inj) 0.4 mg UNSCH PRN IV PUSH 03/13/17 10:00 UNV (Dulcolax Supp) 10 mg DAILY PRN RECTAL 03/13/17 10:00 UNV (Imuran) 50 mg DAILY PO 03/13/17 10:15 UNV (Vasotec Inj) 1.25 mg Q6H PRN IV 03/13/17 10:15 UNV Potassium Chloride/Sodium Chloride 1,000 ml @ 84 mls/hr [id number] IV 03/13/17 10:15 UNV Family History noncontributory Social History Alcohol Use: Yes (OCC) Tobacco Use: No Substance Use: No Physical Exam Vital Signs Vital Signs Date Time Temp Pulse Resp B/P (MAP) Pulse Ox O2 Delivery O2 Flow Rate FiO2 03/13/17 08:00 70 16 164/79 (107) 98 Room Air 03/13/17 06:51 18 Room Air 03/13/17 05:57 97.9 84 20 144/87 (106) 100 Physical Exam GENERAL: This is a well-nourished, well-developed patient, in no apparent distress. SKIN: No rashes, ecchymoses or lesions. Cool and dry. Multiple healed surgical scars through out abdomen NECK: Trachea midline. No JVD or lymphadenopathy. Supple, nontender, no meningeal signs. CARDIOVASCULAR: Regular rate and rhythm without murmurs, gallops, or rubs. RESPIRATORY: Clear to auscultation. Breath sounds equal bilaterally. No wheezes , rales, or rhonchi. GASTROINTESTINAL: Abdomen soft, non-tender, nondistended. Normoactive bowel sounds MUSCULOSKELETAL: Extremities without clubbing, cyanosis, or edema. No joint tenderness, effusion, or edema noted. No calf tenderness. Negative Homans sign bilaterally. NEUROLOGICAL: Awake and alert. No focal deficits appreciated. Motor and sensory grossly within normal limits. Five out of 5 muscle strength in all muscle groups. Normal speech. Laboratory Laboratory Tests Test 03/13/17 06:50 White Blood Count 12.5 Red Blood Count 5.03 Hemoglobin 15.9 Hematocrit 45.1 Mean Corpuscular Volume 89.7 Mean Corpuscular Hemoglobin 31.5 Mean Corpuscular Hemoglobin Concent 35.1 Red Cell Distribution Width 13.0 Platelet Count 261 Mean Platelet Volume 8.9 Neutrophils (%) (Auto) 85.1 Lymphocytes (%) (Auto) 8.5 Monocytes (%) (Auto) 6.0 Eosinophils (%) (Auto) 0.1 Basophils (%) (Auto) 0.3 Neutrophils # (Auto) 10.7 Lymphocytes # (Auto) 1.1 Monocytes # (Auto) 0.7 Eosinophils # (Auto) 0.0 Basophils # (Auto) 0.0 CBC Comment DIFF FINAL Differential Comment Erythrocyte Sedimentation Rate 5 Blood Urea Nitrogen 15 Creatinine 1.20 Random Glucose 109 Total Protein 7.7 Albumin 3.8 Calcium Level 9.3 Magnesium Level 1.9 Alkaline Phosphatase 86 Aspartate Amino Transf (AST/SGOT) 22 Alanine Aminotransferase (ALT/SGPT) 20 Total Bilirubin 0.6 Sodium Level 140 Potassium Level 4.0 Chloride Level 105 Carbon Dioxide Level 26.0 Anion Gap 9 Estimat Glomerular Filtration Rate 60 Lipase 130 Result Diagram: 03/13/1750 03/13/17649 Caprini VTE Risk Assessment Caprini VTE Risk Assessment: Mod/High Risk (score >= 2) Caprini Risk Assessment Model Point Value = 1 Point Value = 2 Point Value = 3 Point Value = 5 Age 41-60 Minor surgery BMI > 25 kg/m2 Swollen legs Varicose veins or History of unexplained or recurrent spontaneous Oral contraceptives or hormone replacement Sepsis (< 1 month) Serious lung disease, including pneumonia (< 1 month) Abnormal pulmonary function Acute myocardial infarction Congestive heart failure (< 1 month) History of inflammatory bowel disease Medical patient at bed rest Age 61-74 Arthroscopic surgery Major open surgery (> 45 min) Laparoscopic surgery (> 45 min) Malignancy Confined to bed (> 72 hours) Immobilizing plaster cast Central venous access Age >= 75 History of VTE Family history of VTE Factor V Leiden Prothrombin [id number] Lupus anticoagulant Anticardiolipin antibodies Elevated serum homocysteine Heparin-induced thrombocytopenia Other congenital or acquired thrombophilia Stroke (< 1 month) Elective arthroplasty Hip, pelvis, or leg fracture Acute spinal cord injury (< 1 month) Prophylaxis Regimen Total Risk Factor Score Risk Level Prophylaxis Regimen 0-1 Low Early ambulation 2 Moderate Order ONE of the following: *Sequential Compression Device (SCD) *Heparin 5000 units SQ BID 3-4 Higher Order ONE of the following medications: *Heparin 5000 units SQ TID *Enoxaparin/Lovenox 40 mg SQ daily (WT < 150 kg, CrCl > 30 mL/min) *Enoxaparin/Lovenox 30 mg SQ daily (WT < 150 kg, CrCl > 10-29 mL/min) *Enoxaparin/Lovenox 30 mg SQ BID (WT < 150 kg, CrCl > 30 mL/min) AND/OR *Sequential Compression Device (SCD) 5 or more Highest Order ONE of the following medications: *Heparin 5000 units SQ TID (Preferred with Epidurals) *Enoxaparin/Lovenox 40 mg SQ daily (WT < 150 kg, CrCl > 30 mL/min) *Enoxaparin/Lovenox 30 mg SQ daily (WT < 150 kg, CrCl > 10-29 mL/min) *Enoxaparin/Lovenox 30 mg SQ BID (WT < 150 kg, CrCl > 30 mL/min) AND *Sequential Compression Device (SCD) Assessment and Plan Problem List: (1) Abdominal pain ICD Codes: R10.9 - Unspecified abdominal pain Status: Acute Plan: Abdominal pain secondary to partial small bowel obstruction history of Crohn's disease s/p colectomy and ileostomy Patient has abdominal pain that began on Saturday, yesterday. The pain became worse at 10 PM on Saturday. He reports having generalized abdominal discomfort described as an aching sensation. Patient also has associated nausea and vomiting 6 and decreased appetite. He has not had any stool output from his ileostomy since 10 PM yesterday. The patient reports that his symptoms are similar to when he has had small bowel obstructions in the past. Abdominal X ray reviews and revealed findings consistent with partial small bowel obstruction or adynamic ileus. No radiographic evidence for bowel infarction or perforation NPO IVF Morphine as needed for pain If vomiting reoccurs plan to place NG tube repeat KUB in AM HTN hold home amlodipine at this time due to partial SBO monitor BP trend Adjustment disorder hold home medications at this time due to partial SBO GERD continue home medications DVT prophylaxis with SCDs (2) Crohn's disease ICD Codes: K50.90 - Crohn's disease, unspecified, without complications Status: Chronic (3) HTN (hypertension) ICD Codes: I10 - Essential (primary) hypertension Status: Chronic Assessment and Plan Patient examined. Assessment and plan formulated with Elena Villavicencio PA-C. I agree with the above. Physician Certification 2 Midnight Certification Type: Admission for Inpatient Services Order for Inpatient Services The services are ordered in accordance with Medicare regulations or non- Medicare payer requirements, as applicable. In the case of services not specified as inpatient-only, they are appropriately provided as inpatient services in accordance with the 2-midnight benchmark. Estimated LOS (days): 3 days is the estimated time the patient will need to remain in the hospital, assuming treatment plan goals are met and no additional complications. Post-Hospital Plan: Not yet determined Problem Qualifiers (1) Abdominal pain: Qualified Codes: R10.32 - Left lower quadrant pain Elena Villavicencio Mar 13, 2017 11:03 Ronny Valdez DO Mar 18, 2017 00:18
[2017-03-13] MEDS: 1/2 NS + KCL 20 MEQ INJ 1,000 ML IV SCH ×2 (12:19→22:04)
[2017-03-13] MEDS: azaTHIOprine 50 MG TAB PO SCH (12:19)
[2017-03-13] MEDS ORDERED: MORPHINE SULFATE 8 MG/ML INJ IV PUSH PRN (13:15)
[2017-03-13] MEDS ORDERED: ACETAMINOPHEN/HYDROcodone 325 MG/5 MG TAB PO PRN (13:15)
[2017-03-13 13:29] VITALS: BP 137/71; PULSE 63; RESP 18; TEMP 96.3; O2SAT 98
[2017-03-13 16:00] VITALS: BP 136/69; PULSE 59; RESP 18; TEMP 97.7; O2SAT 97
[2017-03-13 20:00] VITALS: BP 130/70; PULSE 64; RESP 18; TEMP 98.2; O2SAT 95
[2017-03-13] MEDS: SODIUM CHLORIDE 0.9% FLUSH 10 ML FLUSH IV FLUSH SCH (21:00)
--- NOTE | 2017-03-13 21:10 | EKG ---
Date Performed: 03/13/2017 Time Performed: 06:45:39 PTAGE: 66 years EKG: Sinus rhythm NORMAL ECG PREVIOUS TRACING : 11/10/2016 20.11 Compared to prior tracing no significant change DOCTOR: Cherry Talley Interpretating Date/Time 03/13/2017 21:09:32
[2017-03-14] VITALS: BP 119/60; PULSE 61; RESP 18; TEMP 97.7; O2SAT 95
[2017-03-14 00:54] LABS: BLOOD, URINE MOD (NEG); COMMENT (UR) CULT NOT INDICATED; CULTURE IF INDICATED CULT NOT INDICATED; GLUCOSE,URINE NEG (NEG); KETONE, URINE 10 mg/dL (NEG); MUCUS URINE FEW /lpf (OCC); NITRITE,URINE NEG (NEG); URINE COLOR YELLOW (YELLW/STRAW)
[2017-03-14 06:58] LABS: AUTOMATED NEUTROPHIL # 4.5 TH/MM3 (1.8-7.7); BASOPHIL % 0.4 % (0.0-2.0); EOSINOPHIL # 0.1 TH/MM3 (0-0.4); EOSINOPHIL % 1.4 % (0.0-4.0); HEMATOCRIT 40.3 % (39.0-51.0); HEMO FLAGS DIFF FINAL; LYMPH % 22.2 % (9.0-44.0); LYMPHOCYTE # 1.6 TH/MM3 (1.0-4.8); MEAN CELL VOLUME 91.2 FL (80.0-100.0); MEAN CORPUSCULAR HEMOGLOBIN 30.8 PG (27.0-34.0); MEAN CORPUSCULAR HGB CONC 33.8 % (32.0-36.0); MONO % 14.8 % (0.0-8.0); NEUT % 61.2 % (16.0-70.0); PLATELET COUNT 200 TH/MM3 (150-450); RED BLOOD COUNT 4.41 MIL/MM3 (4.50-5.90); RED CELL DISTRIBUTION WIDTH 13.5 % (11.6-17.2); WHITE BLOOD COUNT 7.3 TH/MM3 (4.0-11.0)
[2017-03-14 07:47] LABS: BICARBONATE 23.8 MEQ/L (21.0-32.0); POTASSIUM 3.9 MEQ/L (3.5-5.1)
[2017-03-14 08:00] VITALS: BP 140/78; PULSE 71; RESP 18; TEMP 97.5; O2SAT 97
[2017-03-14] MEDS: SODIUM CHLORIDE 0.9% FLUSH 10 ML FLUSH IV FLUSH SCH ×2 (09:00→19:40)
[2017-03-14] MEDS: azaTHIOprine 50 MG TAB PO SCH (09:29)
--- NOTE | 2017-03-14 10:06 | RADRPT ---
EXAM DATE/TIME: 03/14/2017 08:19 [place] COMPARISON: ABDOMEN FLAT & UPRIGHT, March 13, 2017, 8:52. INDICATIONS : Abdominal discomfort, evaluate ileus MEDICAL HISTORY : Crohn's disease. SURGICAL HISTORY : Appendectomy. Cholecystectomy. Colon resection. ENCOUNTER: Subsequent ACUITY: 2 days PAIN SCORE: 2/10 LOCATION: Bilateral abdomen FINDINGS: Persistently distended loop of small bowel again seen in the midabdomen, not significantly changed. C olon remains mostly decompressed. No gastric distention. No free air. CONCLUSION: Persistent small bowel distention. Curtis Mcclendon MD on March 14, 2017 at 10:03 Board Certified Radiologist. This report was verified electronically.
[2017-03-14 12:00] VITALS: BP 130/64; PULSE 58; RESP 18; TEMP 97.8; O2SAT 98
[2017-03-14] MEDS: 1/2 NS + KCL 20 MEQ INJ 1,000 ML IV SCH ×2 (12:21→22:44)
--- NOTE | 2017-03-14 14:19 | HHI.PR ---
Subjective Remarks reports feeling much better denies abdominal pain stool output from ostomy tolerating clear liquid diet Objective Vitals Vital Signs Date Time Temp Pulse Resp B/P (MAP) Pulse Ox O2 Delivery O2 Flow Rate FiO2 03/14/17 12:00 97.8 58 18 130/64 (86) 98 03/14/17 08:00 97.5 71 18 140/78 (98) 97 03/14/17 00:00 97.7 61 18 119/60 (79) 95 03/13/17 20:00 98.2 64 18 130/70 (90) 95 03/13/17 16:00 97.7 59 18 136/69 (91) 97 03/14/17 03/14/17 03/15/17 15:00 23:00 07:00 Intake Total 1000 ml Balance 1000 ml IV Total 1000 ml Result Diagram: 03/14/17 0552 03/14/17 0559 Other Results Laboratory Tests Test 03/13/17 06:50 03/14/17 00:40 03/14/17 05:52 03/14/17 05:59 White Blood Count 12.5 TH/MM3 7.3 TH/MM3 Red Blood Count 5.03 MIL/MM3 4.41 MIL/MM3 Hemoglobin 15.9 GM/DL 13.6 GM/DL Hematocrit 45.1 % 40.3 % Mean Corpuscular Volume 89.7 FL 91.2 FL Mean Corpuscular Hemoglobin 31.5 PG 30.8 PG Mean Corpuscular Hemoglobin Concent 35.1 % 33.8 % Red Cell Distribution Width 13.0 % 13.5 % Platelet Count 261 TH/MM3 200 TH/MM3 Mean Platelet Volume 8.9 FL 8.8 FL Neutrophils (%) (Auto) 85.1 % 61.2 % Lymphocytes (%) (Auto) 8.5 % 22.2 % Monocytes (%) (Auto) 6.0 % 14.8 % Eosinophils (%) (Auto) 0.1 % 1.4 % Basophils (%) (Auto) 0.3 % 0.4 % Neutrophils # (Auto) 10.7 TH/MM3 4.5 TH/MM3 Lymphocytes # (Auto) 1.1 TH/MM3 1.6 TH/MM3 Monocytes # (Auto) 0.7 TH/MM3 1.1 TH/MM3 Eosinophils # (Auto) 0.0 TH/MM3 0.1 TH/MM3 Basophils # (Auto) 0.0 TH/MM3 0.0 TH/MM3 CBC Comment DIFF FINAL DIFF FINAL Differential Comment Erythrocyte Sedimentation Rate 5 mm/hr Blood Urea Nitrogen 15 MG/DL 17 MG/DL Creatinine 1.20 MG/DL 1.07 MG/DL Random Glucose 109 MG/DL 76 MG/DL Total Protein 7.7 GM/DL Albumin 3.8 GM/DL Calcium Level 9.3 MG/DL 8.7 MG/DL Magnesium Level 1.9 MG/DL Alkaline Phosphatase 86 U/L Aspartate Amino Transf (AST/SGOT) 22 U/L Alanine Aminotransferase (ALT/SGPT) 20 U/L Total Bilirubin 0.6 MG/DL Sodium Level 140 MEQ/L 138 MEQ/L Potassium Level 4.0 MEQ/L 3.9 MEQ/L Chloride Level 105 MEQ/L 107 MEQ/L Carbon Dioxide Level 26.0 MEQ/L 23.8 MEQ/L Anion Gap 9 MEQ/L 7 MEQ/L Estimat Glomerular Filtration Rate 60 ML/MIN 69 ML/MIN Lipase 130 U/L Urine Color YELLOW Urine Turbidity CLEAR Urine pH 6.0 Urine Specific [place] 1.026 Urine Protein TRACE mg/dL Urine Glucose (UA) NEG mg/dL Urine Ketones 10 mg/dL Urine Occult Blood MOD Urine Nitrite NEG Urine Bilirubin NEG Urine Urobilinogen 2.0 MG/DL Urine Leukocyte Esterase NEG Urine RBC 31 /hpf Urine WBC 3 /hpf Urine Mucus FEW /lpf Microscopic Urinalysis Comment CULT NOT INDICATED Imaging Last Impressions Abdomen X-Ray 03/14/17 0800 Signed Impressions: Service Date/Time: February 08:19 - CONCLUSION: Persistent small bowel distention. Curtis Mcclendon MD Chest X-Ray 03/13/17 0958 Signed Impressions: Service Date/Time: Monday, March 13, 2017 10:24 - CONCLUSION: No evidence of acute cardiopulmonary disease. Curtis Mcclendon MD Objective Remarks GENERAL: This is a well-nourished, well-developed patient, in no apparent distress. SKIN: No rashes, ecchymoses or lesions. Cool and dry. Multiple healed surgical scars through out abdomen NECK: Trachea midline. No JVD or lymphadenopathy. Supple, nontender, no meningeal signs. CARDIOVASCULAR: Regular rate and rhythm without murmurs, gallops, or rubs. RESPIRATORY: Clear to auscultation. Breath sounds equal bilaterally. No wheezes , rales, or rhonchi. GASTROINTESTINAL: Abdomen soft, non-tender, nondistended. Normoactive bowel sounds MUSCULOSKELETAL: Extremities without clubbing, cyanosis, or edema. No joint tenderness, effusion, or edema noted. No calf tenderness. Negative Homans sign bilaterally. NEUROLOGICAL: Awake and alert. No focal deficits appreciated. Motor and sensory grossly within normal limits. Five out of 5 muscle strength in all muscle groups. Normal speech. A/P Problem List: (1) Abdominal pain ICD Codes: R10.9 - Unspecified abdominal pain Status: Acute Plan: Abdominal pain secondary to partial small bowel obstruction history of Crohn's disease s/p colectomy and ileostomy Patient has abdominal pain that began on Saturday, yesterday. The pain became worse at 10 PM on Saturday. He reports having generalized abdominal discomfort described as an aching sensation. Patient also has associated nausea and vomiting 6 and decreased appetite. He has not had any stool output from his ileostomy since 10 PM yesterday. The patient reports that his symptoms are similar to when he has had small bowel obstructions in the past. Abdominal X ray reviews and revealed findings consistent with partial small bowel obstruction or adynamic ileus. No radiographic evidence for bowel infarction or perforation NPO initially then clear liquid diet (03/14) IVF- DC Morphine as needed for pain repeat KUB this is reviewed and reveals persistent small bowel distention stool out from ostomy advance diet as tolerated plan to DC tomorrow if tolerates diet HTN hold home amlodipine at this time due to partial SBO monitor BP trend Adjustment disorder held home medications initially due to partial SBO 03/14 resume Mirtazapine 30 mg PO QHS GERD continue home medications DVT prophylaxis with SCDs (2) Crohn's disease ICD Codes: K50.90 - Crohn's disease, unspecified, without complications Status: Chronic (3) HTN (hypertension) ICD Codes: I10 - Essential (primary) hypertension Status: Chronic Assessment and Plan Patient examined. Assessment and plan formulated with Elena Villavicencio PA-C. I agree with the above. Problem Qualifiers (1) Abdominal pain: Qualified Codes: R10.32 - Left lower quadrant pain Elena Villavicencio Mar 14, 2017 14:19 Ronny Valdez DO Mar 18, 2017 00:17
[2017-03-14 16:20] VITALS: BP 136/67; PULSE 70; RESP 18; TEMP 97.3; O2SAT 99
[2017-03-14 20:00] VITALS: BP 155/76; PULSE 72; RESP 18; TEMP 96.9; O2SAT 99
[2017-03-14] MEDS ORDERED: MIRTAZAPINE 15 MG TAB PO SCH (21:00)
[2017-03-15 00:33] VITALS: BP 144/77; PULSE 70; RESP 18; TEMP 98.2; O2SAT 98
[2017-03-15 08:00] VITALS: BP 147/78; PULSE 75; RESP 17; TEMP 96.2; O2SAT 98
[2017-03-15] MEDS ORDERED: PANTOPRAZOLE SOD 20 MG DELAYED RELEASE TAB PO SCH (09:00)
[2017-03-15] MEDS: SODIUM CHLORIDE 0.9% FLUSH 10 ML FLUSH IV FLUSH SCH (09:00)
--- NOTE | 2017-03-15 09:32 | HHI.DS ---
Discharge Summary Admission Date Mar 13, 2017 at 10:11 Discharge Date: Mar 15, 2017 Admitting Diagnosis small bowel obstruction (1) Abdominal pain ICD Codes: R10.9 - Unspecified abdominal pain Status: Acute (2) Crohn's disease ICD Codes: K50.90 - Crohn's disease, unspecified, without complications Status: Chronic (3) HTN (hypertension) ICD Codes: I10 - Essential (primary) hypertension Status: Chronic Brief History The patient is a 66 year old male patient with a past medication history which includes: Crohn's disease s/p total colectomy with ileostomy, recurrent bowel obstructions, hypertension, history of hepatic cysts, renal cysts, history of anxiety and depression, acid reflux, history of hiatal hernia. Patient presents to the [facility] emergency department with abdominal pain that began on Saturday, yesterday. The pain became worse at 10 PM on Saturday. He reports having generalized abdominal discomfort described as an aching sensation. Patient also has associated nausea and vomiting 6 and decreased appetite. In the ER patient had reported that he has not had any stool output from his ileostomy since 10 PM yesterday. While being in the hospital today patient reports that he has passed a small amount of stool and abdominal pain is slightly better. The patient reports that his symptoms are similar to when he has had small bowel obstructions in the past. The patient has a history of Crohn's disease since 20 years of age status post total colectomy and ileostomy placement. Prior to this, he denies noticing any blood in his stool. On review of systems, he denies having any fevers but does report having some chills. He denies having any recent cough, chest pain, shortness of breath or dysuria. He does report having some recent clear rhinorrhea and congestion related to an allergy exacerbation. CBC/BMP: 03/14/17 0552 03/14/17 0559 Significant Findings Laboratory Tests Test 03/13/17 06:50 03/14/17 00:40 03/14/17 05:52 03/14/17 05:59 White Blood Count 12.5 TH/MM3 (4.0-11.0) Neutrophils (%) (Auto) 85.1 % (16.0-70.0) Lymphocytes (%) (Auto) 8.5 % (9.0-44.0) Neutrophils # (Auto) 10.7 TH/MM3 (1.8-7.7) Random Glucose 109 MG/DL (74-106) Estimat Glomerular Filtration Rate 60 ML/MIN (>89) 69 ML/MIN (>89) Urine Ketones 10 mg/dL (NEG) Urine Occult Blood MOD (NEG) Urine RBC 31 /hpf (0-3) Urine Mucus FEW /lpf (OCC) Red Blood Count 4.41 MIL/MM3 (4.50-5.90) Monocytes (%) (Auto) 14.8 % (0.0-8.0) Monocytes # (Auto) 1.1 TH/MM3 (0-0.9) Imaging Last Impressions Abdomen X-Ray 03/14/17 0800 Signed Impressions: Service Date/Time: February 08:19 - CONCLUSION: Persistent small bowel distention. Curtis Mcclendon MD Chest X-Ray 03/13/17 0958 Signed Impressions: Service Date/Time: Monday, March 13, 2017 10:24 - CONCLUSION: No evidence of acute cardiopulmonary disease. Curtis Mcclendon MD PE at Discharge GENERAL: This is a well-nourished, well-developed patient, in no apparent distress. SKIN: No rashes, ecchymoses or lesions. Cool and dry. Multiple healed surgical scars through out abdomen NECK: Trachea midline. No JVD or lymphadenopathy. Supple, nontender, no meningeal signs. CARDIOVASCULAR: Regular rate and rhythm without murmurs, gallops, or rubs. RESPIRATORY: Clear to auscultation. Breath sounds equal bilaterally. No wheezes , rales, or rhonchi. GASTROINTESTINAL: Abdomen soft, non-tender, nondistended. Normoactive bowel sounds MUSCULOSKELETAL: Extremities without clubbing, cyanosis, or edema. No joint tenderness, effusion, or edema noted. No calf tenderness. Negative Homans sign bilaterally. NEUROLOGICAL: Awake and alert. No focal deficits appreciated. Motor and sensory grossly within normal limits. Five out of 5 muscle strength in all muscle groups. Normal speech. Hospital Course Abdominal pain secondary to partial small bowel obstruction- resolved history of Crohn's disease s/p colectomy and ileostomy Patient has abdominal pain that began on Saturday, yesterday. The pain became worse at 10 PM on Saturday. He reports having generalized abdominal discomfort described as an aching sensation. Patient also has associated nausea and vomiting 6 and decreased appetite. He has not had any stool output from his ileostomy since 10 PM yesterday. The patient reports that his symptoms are similar to when he has had small bowel obstructions in the past. Abdominal X ray reviews and revealed findings consistent with partial small bowel obstruction or adynamic ileus. No radiographic evidence for bowel infarction or perforation NPO initially then advanced- patient tolerated reg diet 03/15 IVF- DC Morphine as needed for pain repeat KUB 03/14 reviewed and reveals persistent small bowel distention stool out from ostomy HTN hold home amlodipine at this time due to partial SBO monitor BP trend- elevated will resume amlodipine at DC Adjustment disorder held home medications initially due to partial SBO 03/14 resume Mirtazapine 30 mg PO QHS GERD continue home medications DVT prophylaxis with SCDs Pt Condition on Discharge: Stable Discharge Disposition: Discharge Home Discharge Instructions DIET: Follow Instructions for: As Tolerated, No Restrictions Activities you can perform: Regular-No Restrictions Follow up Referrals: Colorectal Surgery - 1 Week with Curtis Walker MD Continued Medications: Amlodipine (Amlodipine) 2.5 Mg Tab 2.5 MG PO DAILY for Blood Pressure Management, #30 TAB 0 Refills Azathioprine (Azathioprine) 50 Mg Tab 50 MG PO DAILY for Immunosuppression, #30 TAB 0 Refills Hazardous agent use appropriate precautions for handling and disposal. Hydrocodone-Acetaminophen ([place]) 10-325 Mg Tab 1 TAB PO Q4H PRN for PAIN, TAB 0 Refills Infliximab Inj (Remicade Inj) 100 Mg Inj Mirtazapine (Mirtazapine) 30 Mg Tab 30 MG PO HS for Depression Control, #30 TAB 0 Refills Omeprazole (Omeprazole) 10 Mg Cap 10 MG PO DAILY, #30 CAP 0 Refills Additional Information Patient examined. Assessment and plan formulated with Elena Villavicencio PA-C. I agree with the above. Elena Villavicencio Mar 15, 2017 09:32 Ronny Valdez DO Mar 18, 2017 00:19
--- NOTE | 2017-03-15 09:33 | HHI.DCPOC ---
Discharge Care Plan Diagnosis: (1) Small bowel obstruction (2) Crohn's disease (3) HTN (hypertension) (4) GERD (gastroesophageal reflux disease) Goals to Promote Your Health * To prevent worsening of your condition and complications * To maintain your health at the optimal level Directions to Meet Your Goals Take your medications as prescribed Follow your dietary instruction Follow activity as directed Keep your appointments as scheduled Take your immunizations and boosters as scheduled If your symptoms worsen call your PCP, if no PCP go to Urgent Care Center or Emergency Room Smoking is Dangerous to Your Health. Avoid second hand smoke Call the 24-hour hour crisis hotline for domestic abuse at Elena Villavicencio Mar 15, 2017 09:33 Ronny Valdez DO Mar 18, 2017 00:19
[2017-03-15] MEDS: azaTHIOprine 50 MG TAB PO SCH (09:54)
== END 2017-03-15 11:10 | disposition home or self-care (01) | DRG 389 ==
LOC: NEPC 05:56 → NEDA 10:11 → N07B 13:09
PROVIDERS: ADMIT Hospitalist; ATTEND Hospitalist
DX: K56.600 Partial intestinal obstruction, unspecified as to cause (principal); K50.90 Crohn's disease, unspecified, without complications; I10 Essential (primary) hypertension; K21.9 Gastro-esophageal reflux disease without esophagitis; F43.20 Adjustment disorder, unspecified; F41.9 Anxiety disorder, unspecified; F32.9 Major depressive disorder, single episode, unspecified; Z90.49 Acquired absence of other specified parts of digestive tract; Z93.2 Ileostomy status
CPT/HCPCS: 71010; 74000; 74020; 80048; 80053; 81001; 83690; 83735; 85025; 85652; 93005; 96361; 96374; 96375; J2270; J2405; J7030; J7500

== ENCOUNTER → 2017-04-04 | Day surgery (SDC) | payer MEDICARE ==
[~2017-04-04] VITALS: Ht 167.6 cm; Wt 67.2 kg
[~2017-04-04] MED LIST changes: +AMLO2.5T PO; +CHLORHEXIDINE GLUCONATE 2 % 1 PACK (2 CLOTHS) TOPICAL PRN; +CYCLOPENTOLATE HCL 1% OPHT SOLN 2 ML BTL ONE; -FEXO15TA PO; -FLUT1SPR5 EACH NARE; +INSULIN HUMAN REGULAR 1,000 UNITS/10 ML VIAL SQ PRN; +LACTATED RINGER'S 1000 ML IV PRN; +LIDOCAINE HCL 1% PF 30 ML VIAL ONE; +LIDOCAINE HCL 2% JELLY 5 ML SYRINGE ONE; +LIDOCAINE HCL 2% JELLY 5 ML SYRINGE TOPICAL ONE; -LISI-519 PO; +METOPROLOL TARTRATE 25 MG TAB PO PRN; +PHENYLEPHRINE HCL 10% OPTH SOLN 5 ML BTL ONE; +POVIDONE IODINE 5% (ANTISEPSIS KIT) 4 APPLICATIONS EACH NARE PRN; +PROPARACAINE HCL 0.5% OPHT SOLN 15 ML BTL ONE; +PROPARACAINE HCL 0.5% OPHT SOLN 15 ML BTL RIGHT EYE ONE; +SODIUM CHLORID 0.9% 500 ML IV PRN; +TOBRAMYCIN/DEXAMETHASONE OPTH OINT 3.5 GM TUBE ONE; +TROPICAMIDE 1% OPHT SOLN 15 ML BTL ONE
[2017-04-04] MEDS: PHENYLEPHRINE HCL 10% OPTH SOLN 5 ML BTL RIGHT EYE SCH ×4 (07:12→07:27)
[2017-04-04] MEDS: TROPICAMIDE 1% OPHT SOLN 15 ML BTL RIGHT EYE SCH ×4 (07:12→07:27)
[2017-04-04] MEDS: FLURBIPROFEN 0.03% OPHT SOLN 2.5 ML BTL RIGHT EYE SCH ×2 (07:12→07:17)
[2017-04-04] MEDS: CYCLOPENTOLATE HCL 1% OPHT SOLN 2 ML BTL RIGHT EYE SCH ×4 (07:12→07:27)
[2017-04-04 08:50] VITALS: BP 134/78; PULSE 66; RESP 16; TEMP 97.9; O2SAT 100
--- NOTE | 2017-04-04 23:33 | MP ---
cc: NIKITA URIAS [facility] #[id number] DATE OF SURGERY 04/04/17 POSTOPERATIVE DIAGNOSIS: Visually significant cataract right eye OPERATION: Phacoemulsification with posterior chamber lens implantation, right eye. SURGEON: Nikita Urias MD ANESTHESIA: Topical with MAC. COMPLICATIONS: None. PROCEDURE: After informed consent was obtained, the patient was brought into the operative suite and placed on appropriate monitors by the Anesthesia Service. The patient had been given dilating drops and topical lidocaine gel in the holding area. The patient's operative eye was then prepped and draped in the usual sterile fashion. A wire lid speculum was placed. Further 2% lidocaine was then dropped on the cornea prior to beginning the procedure. A paracentesis incision was made in the peripheral cornea with a 1 mm delicia keratome. The anterior chamber was filled with viscoelastic. The anterior chamber was then entered through a stepped, clear corneal incision using a sharp 3 mm delicia keratome. A circular tear capsulorrhexis was then made with a bent needle cystitome. Following hydrodissection of the lens nucleus with balance saline, phaco-emulsification of the nucleus was performed using a modified chopping technique. The remaining cortex was removed with irrigation/aspiration. The prior two procedures were both performed using the handpieces of the [employer] phaco unit. The capsular bag was then filled with viscoelastic. The intraocular lens was then injected into the capsular bag and positioned. The type of intraocular lens and its power can be found elsewhere in this chart. The remaining viscoelastic was then removed from the anterior chamber with the IA handpiece. The anterior chamber was reformed with balanced saline. The wound was then closed securely with stromal hydration. It was found to be watertight to an intraocular pressure of at least 30 mmHg by palpation. A small amount of balanced salt solution was then removed through the paracentesis site and the intraocular pressure at the end of the case was approximately 20 by palpation. All drapes were then removed. TobraDex ointment was then placed in the eye, which was closed beneath a semi-pressure patch dressing. The patient tolerated this procedure well and left the operating room awake and alert. The patient is to follow-up in my office in the morning. MD LINN Raymundo/ /2:54 PM /11:24 PM
== END | disposition home or self-care (01) ==
LOC: PHSDC 06:40
PROVIDERS: ATTEND Optometrist Occupational Vision
DX: H25.11 Age-related nuclear cataract, right eye (principal)
CPT/HCPCS: 00142; 66984; J7040; V2632

== ENCOUNTER → 2017-05-16 | Day surgery (SDC) | payer MEDICARE, OTHER ==
[~2017-05-16] VITALS: Ht 167.6 cm; Wt 67.5 kg
[~2017-05-16] MED LIST changes: +BENZ1CAP51 PO; +FEXO15TA PO; +FLURBIPROFEN 0.03% OPHT SOLN 2.5 ML BTL ONE; -INSULIN HUMAN REGULAR 1,000 UNITS/10 ML VIAL SQ PRN; +PROPARACAINE HCL 0.5% OPHT SOLN 15 ML BTL LEFT EYE ONE; -PROPARACAINE HCL 0.5% OPHT SOLN 15 ML BTL RIGHT EYE ONE; +SODIUM CHLORID 0.9% 500 ML INJ 500 ML ONE; -SODIUM CHLORID 0.9% 500 ML IV PRN
[2017-05-16] MEDS: FLURBIPROFEN 0.03% OPHT SOLN 2.5 ML BTL LEFT EYE SCH ×4 (06:39→06:54)
[2017-05-16] MEDS: PHENYLEPHRINE HCL 10% OPTH SOLN 5 ML BTL LEFT EYE SCH ×4 (06:39→06:54)
[2017-05-16] MEDS: TROPICAMIDE 1% OPHT SOLN 15 ML BTL LEFT EYE SCH ×4 (06:39→06:54)
[2017-05-16] MEDS: CYCLOPENTOLATE HCL 1% OPHT SOLN 2 ML BTL LEFT EYE SCH ×4 (06:39→06:54)
[2017-05-16 08:40] VITALS: BP 151/78; PULSE 72; RESP 16; TEMP 98.2; O2SAT 99
--- NOTE | 2017-05-16 10:37 | MP ---
cc: NIKITA URIAS M.D. [facility] #[id number] DATE OF SURGERY 05/16/2017 PREOPERATIVE DIAGNOSIS Visually significant cataract left eye. POSTOPERATIVE DIAGNOSIS Visually significant cataract left eye. OPERATION Phacoemulsification with posterior chamber lens implantation, left eye. SURGEON Nikita Urias MD ANESTHESIA Topical with MAC COMPLICATIONS None PROCEDURE After informed consent was obtained, the patient was brought into the operative suite and placed on appropriate monitors by the Anesthesia Service. The patient had been given dilating drops and topical lidocaine gel in the holding area. The patient's operative eye was then prepped and draped in the usual sterile fashion. A wire lid speculum was placed. Further 2% lidocaine was then dropped on the cornea prior to beginning the procedure. A paracentesis incision was made in the peripheral cornea with a 1 mm delicia keratome. The anterior chamber was filled with viscoelastic. The anterior chamber was then entered through a stepped, clear corneal incision using a sharp 3 mm delicia keratome. A circular tear capsulorrhexis was then made with a bent needle cystitome. Following hydrodissection of the lens nucleus with balance saline, phacoemulsification of the nucleus was performed using a modified chopping technique. The remaining cortex was removed with irrigation/aspiration. The prior two procedures were both performed using the handpieces of the [employer] phaco unit. The capsular bag was then filled with viscoelastic. The intraocular lens was then injected into the capsular bag and positioned. The type of intraocular lens and its power can be found elsewhere in this chart. The remaining viscoelastic was then removed from the anterior chamber with the IA handpiece. The anterior chamber was reformed with balanced saline. The wound was then closed securely with stromal hydration. It was found to be watertight to an intraocular pressure of at least 30 mmHg by palpation. A small amount of balanced salt solution was then removed through the paracentesis site and the intraocular pressure at the end of the case was approximately 20 by palpation. All drapes were then removed. TobraDex ointment was then placed in the eye, which was closed beneath a semi-pressure patch dressing. The patient tolerated this procedure well and left the operating room awake and alert. The patient is to follow-up in my office in the morning. MD LINN Raymundo/JONATHAN /9:48 AM /10:12 AM
== END | disposition home or self-care (01) ==
LOC: PHSDC 06:04
PROVIDERS: ATTEND Optometrist Occupational Vision
DX: H26.9 Unspecified cataract (principal)
CPT/HCPCS: 00142; 66984; J7040; V2632

== ENCOUNTER 2017-09-04 13:14 | Emergency (ER) | payer MEDICARE ==
[~2017-09-04] VITALS: Ht 167.6 cm; Wt 67.0 kg
[~2017-09-04 13:14] MED LIST changes: -BENZ1CAP51 PO; -CHLORHEXIDINE GLUCONATE 2 % 1 PACK (2 CLOTHS) TOPICAL PRN; -CYCLOPENTOLATE HCL 1% OPHT SOLN 2 ML BTL ONE; -FLURBIPROFEN 0.03% OPHT SOLN 2.5 ML BTL ONE; -LACTATED RINGER'S 1000 ML IV PRN; -LIDOCAINE HCL 1% PF 30 ML VIAL ONE; -LIDOCAINE HCL 2% JELLY 5 ML SYRINGE ONE; -LIDOCAINE HCL 2% JELLY 5 ML SYRINGE TOPICAL ONE; -METOPROLOL TARTRATE 25 MG TAB PO PRN; -PHENYLEPHRINE HCL 10% OPTH SOLN 5 ML BTL ONE; -POVIDONE IODINE 5% (ANTISEPSIS KIT) 4 APPLICATIONS EACH NARE PRN; -PROPARACAINE HCL 0.5% OPHT SOLN 15 ML BTL LEFT EYE ONE; -PROPARACAINE HCL 0.5% OPHT SOLN 15 ML BTL ONE; -SODIUM CHLORID 0.9% 500 ML INJ 500 ML ONE; -TOBRAMYCIN/DEXAMETHASONE OPTH OINT 3.5 GM TUBE ONE; -TROPICAMIDE 1% OPHT SOLN 15 ML BTL ONE
[2017-09-04 13:40] VITALS: BP 129/86; PULSE 71; RESP 17; TEMP 98; O2SAT 98
[2017-09-04] MEDS ORDERED: LANS30CA PO (14:28)
[2017-09-04] MEDS ORDERED: NORC5TAB PO (14:49)
[2017-09-04] MEDS ORDERED: PRED20 PO (14:49)
--- NOTE | 2017-09-04 14:49 | PD ---
HPI Chief Complaint: Hip Injury Time Seen by Provider: 14:28 Travel History International Travel<30 days: No Contact w/Intl Traveler<30days: No Traveled to known affect area: No History of Present Illness HPI 66-year-old male complains of right hip pain. Patient states that he had intermittent right hip pain for the past month. Patient states the pain is sharp pain localized the posterior aspect the right hip. Patient denies any pain radiation. Patient denies any injury to the right hip. Patient denies any fever chills. Patient has history of Crohn's disease. Patient states that the pain is not worse with weightbearing. Patient states that the pain started this morning however resolved completely now. On a scale from 1-10 the pain was 7 earlier. PFSH Past Medical History Hx Anticoagulant Therapy: No Arthritis: No Asthma: No Autoimmune Disease: Yes (CROHNS) Blood Disorders: No Heart Rhythm Problems: No Cancer: No Cardiovascular Problems: Yes (CP) High Cholesterol: No Chemotherapy: No Chest Pain: No Congestive Heart Failure: No COPD: No Cerebrovascular Accident: No Diabetes: No Diminished Hearing: No Endocrine: No Gastrointestinal Disorders: Yes (CROHNS, GERD;SMALL BOWEL OBSTRUCTION/STRICTURE ) GERD: Yes Genitourinary: No Headaches: No Hepatitis: No Hiatal Hernia: Yes Hypertension: Yes Implanted Vascular Access Dvce: No Kidney Stones: Yes Medical other: Yes (HEPATIC CYST) Musculoskeletal: Yes (BENIGN NEOPLASM OF PELVIC BONES, SACRUM/COCCYX) Neurologic: No Psychiatric: 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;ANXIETY) Reproductive: No Respiratory: No Immunizations Current: Yes Migraines: No Renal Failure: No Seizures: No Sickle Cell Disease: No Sleep Apnea: No Thyroid Disease: No Ulcer: No Tetanus Vaccination: > 5 Years PNEUMOCCOCAL Vaccine (Year): 2 ?: Not Past Surgical History Abdominal Surgery: Yes (ileostomy and resection;CHOLECYSTECTOMY) AICD: No Appendectomy: Yes Cardiac Surgery: No Cholecystectomy: Yes Ear Surgery: No Endocrine Surgery: No Eye Surgery: Yes (PHACO RIGHT EYE) Genitourinary Surgery: No Gynecologic Surgery: No Joint Replacement: No Neurologic Surgery: No Oral Surgery: No Pacemaker: No Thoracic Surgery: No Other Surgery: Yes (ILEOSTOMY, COLON, APPENDECTOMY, ANAL, GALLBLADDER) Social History Alcohol Use: Yes (OCC) Tobacco Use: No Substance Use: No Allergies-Medications (Allergen,Severity, Reaction): Coded Allergies: meperidine (Verified Allergy, Unknown, Hypotension, 09/04/17) Reported Meds & Prescriptions Reported Meds & Active Scripts Active Reported Lansoprazole 30 Mg Capdr 30 Mg PO DAILY Lucina Allergy (Fexofenadine HCl) 180 Mg Tab 180 Mg PO DAILY Amlodipine (Amlodipine Besylate) 2.5 Mg Tab 5 Mg PO DAILY Mirtazapine 30 Mg Tab 30 Mg PO HS Glendo (Hydrocodone-Acetaminophen) 10-325 Mg Tab 1 Tab PO Q4H PRN Azathioprine 50 Mg Tab 50 Mg PO DAILY Hazardous agent use appropriate precautions for handling and disposal. Review of Systems General / Constitutional: No: Fever Eyes: No: Visual changes HENT: No: Headaches Cardiovascular: No: Chest Pain or Discomfort Respiratory: No: Shortness of Breath Gastrointestinal: No: Abdominal Pain Genitourinary: No: Dysuria Musculoskeletal: Positive: Pain Skin: No Rash Neurologic: No: Weakness Psychiatric: No: Depression Endocrine: No: Polydipsia Hematologic/Lymphatic: No: Easy Bruising Physical Exam Narrative GENERAL: Well-nourished, well-developed patient. SKIN: Focused skin assessment warm/dry. HEAD: Normocephalic. EYES: No scleral icterus. No injection or drainage. NECK: Supple, trachea midline. No JVD or lymphadenopathy. CARDIOVASCULAR: Regular rate and rhythm without murmurs, gallops, or rubs. RESPIRATORY: Breath sounds equal bilaterally. No accessory muscle use. GASTROINTESTINAL: Abdomen soft, non-tender, nondistended. MUSCULOSKELETAL: No cyanosis, or edema. BACK: Nontender without obvious deformity. No CVA tenderness. Examination right hip reveals no tenderness on palpation. Full range of motion the right hip joint. No redness or swelling or deformity noted. No rash noted. Data Data Last Documented VS Vital Signs Date Time Temp Pulse Resp B/P (MAP) Pulse Ox O2 Delivery O2 Flow Rate FiO2 09/04/17 13:40 98.0 71 17 129/86 (100) 98 Orders Orders Hip, Uni(Ap&Lat) W Ap Pelvis (09/04/17 13:44) MDM Medical Decision Making Medical Screen Exam Complete: Yes Emergency Medical Condition: Yes Differential Diagnosis Differential diagnosis including arthralgia, tendinitis, bursitis, fracture, dislocation. Narrative Course 66-year-old male with intermittent right hip pain. Nontraumatic. Diagnosis Primary Impression: Arthralgia of right hip Patient Instructions: General Instructions Additional Instructions: Take medications as needed for pain. Ice pack as needed. Follow-up with orthopedist and personal physician. Return if worse. Med/Other Pt SpecificInfo: Prescription(s) given Scripts Hydrocodone-Acetaminophen (Glendo) 5 Mg-325 Mg Tab 1 TAB PO Q6H Y for PAIN, #12 TAB 0 Refills Prov: Gonzalez Aponte MD 09/04/17 Prednisone (Prednisone) 20 Mg Tab 20 MG PO BID, #20 TAB 0 Refills Prov: Gonzalez Aponte MD 09/04/17 Disposition: 01 DISCHARGE HOME Condition: Stable Gonzaelz Aponte MD Sep 04, 2017 14:49
--- NOTE | 2017-09-04 14:59 | RADRPT ---
EXAM DATE/TIME: 09/04/2017 14:01 [place] COMPARISON: No previous studies available for comparison. INDICATIONS : Right hip pain, no known trauma. MEDICAL HISTORY : None. SURGICAL HISTORY : None. ENCOUNTER: Initial ACUITY: 1 month PAIN SCORE: 3/10 LOCATION: Right posterior hip and pelvis FINDINGS: Examination of the right hip was performed with AP Pelvis. The primary and secondary trabecular collin jory of the femoral neck is intact. The hip joint is of normal width without significant sclerosis or bony hypertrophy. The acetabulum is grossly intact. Ring of sclerosis traverses the left SI joint superiorly. Ostomy apparatus projects over the right sa cral ala. CONCLUSION: 1. Right hip is intact. No fracture or significant degenerative changes. 2. Benign-appearing ring of sclerosis projecting over the superior aspect of the left SI joint. Multi ple phleboliths in the deep pelvis Virgil Quevedo MD on September 04, 2017 at 14:55 Board Certified Radiologist. This report was verified electronically.
[2017-09-04] MEDS ORDERED: KETOROLAC TROMETHAMINE 60 MG/2 ML (IM) VIAL IM ONE (15:30)
== END 2017-09-04 16:34 | disposition home or self-care (01) ==
LOC: NEPC 13:14
DX: M25.551 Pain in right hip (principal); I10 Essential (primary) hypertension
CPT/HCPCS: 73502; 99283